=== PATIENT | female | born 1960 | race Caucasian/White ===

== ENCOUNTER 2018-12-19 20:42 | Observation (INO) | payer OTHER, SELFPAY ==
[2018-12-19] VITALS (11 sets, daily range): BP systolic 86–131; BP diastolic 45–72; PULSE 17–106; RESP 15–19; TEMP 37.8–39.3; O2SAT 90–92; BMI 36.4
--- NOTE | 2018-12-19 21:11 | DI.RAD.S_ITS ---
PROCEDURE: XR CHEST 1V INDICATIONS: cough short of breath fever TECHNIQUE: One view of the chest was acquired. COMPARISON: [facility], CR, XR CHEST 2VW, 07/09/2015, 8:49. [facility], CR, XR CHEST 2 VIEWS, 12/12/2017, 12:59. FINDINGS: Surgical changes and devices: Right chest wall elsi catheter, tip of which is in the upper SVC. Lungs and pleura: Lungs are clear. No pleural effusions or pneumothorax. Mediastinum: Mediastinal contours appear normal. Heart size is normal. Bones and chest wall: No suspicious bony lesions. Overlying soft tissues appear unremarkable. IMPRESSION: No acute process. Dictated by: Pam Henry M.D. on 12/19/2018 at 21:56 Approved by: Pam Henry M.D. on 12/19/2018 at 21:56
[2018-12-19 21:26] LABS: Add Manual Diff / Slide Review NO; Basophils Absolute Auto 0 /uL (0-100); Basophils Percent Auto 0.6 % (0-2); Eosinophils Absolute Auto 0 /uL (0-450); Eosinophils Percent Auto 0.1 % (2-4); Hematocrit 43.7 % (36-46); Hemoglobin 14.7 g/dL (12.0-16.0); Lymphocytes Absolute Auto 300 /uL (1100-4500); Lymphocytes Percent Auto 4.6 % (25-40); Mean Corpuscular HGB Conc 33.6 % (30-36); Mean Corpuscular Hemoglobin 29.3 PG (26-34); Mean Corpuscular Volume 87.3 fL (80-100); Monocytes Absolute Auto 900 /uL (0-900); Monocytes Percent Auto 12.4 % (3-14); Neutrophils Absolute Auto 6100 /uL (1500-7000); Neutrophils Percent Auto 82.3 % (50-75); Platelet Count 244 X10^3/uL (150-400); Red Blood Cell Count 5.01 X10^6/uL (4.0-5.2); Red Cell Distribution Width 14.5 % (11.6-14.8); White Blood Cell Count 7.4 X10^3/uL (4.5-11.0)
--- NOTE | 2018-12-19 21:26 | PC.NURSE ---
Patient has alpha 1 antitrypsin deficiency. Takes a weekly Prolastin infusion. It was due today, but her nurse was not able to make it due to the snow. She has been feeling ill with fever, chills, dry cough, and decreased appetite. Has been admitted for pneumonia in the past.
[2018-12-19] MEDS: ACETAMINOPHEN 325 MG TABLET 975 MG PO (21:37)
[2018-12-19] MEDS: SODIUM CHLORIDE 0.9% 1,000 ML 200 ML IV (21:37)
[2018-12-19] MEDS: KETOROLAC 60 MG/2 ML VIAL 15 MG IV (21:37)
[2018-12-19 21:38] LABS: Lactate (Lactic Acid) 0.8 mmol/L (0.7-2.1)
[2018-12-19 21:44] LABS: Alanine Aminotransferase 38 IU/L (9-52); Albumin 4.4 g/dL (3.5-5.0); Albumin Globulin Ratio 1.2 (1.0-2.8); Alkaline Phosphatase 69 U/L (38-126); Aspartate Aminotransferase 43 IU/L (14-36); Bilirubin Total 0.5 mg/dL (0.2-1.3); Blood Urea Nitrogen 16 mg/dL (7-17); Calcium 8.7 mg/dL (8.4-10.2); Carbon Dioxide 23 mmol/L (22-32); Chloride 104 mmol/L (98-107); Estimated Glomerular Filt Rate > 60.0 mL/min (>60); Globulin 3.6 g/dL (1.7-4.1); Glucose 114 mg/dL (70-100); HEMOLYSIS < 15 (0-50); Potassium 3.9 mmol/L (3.4-5.1); Sodium 137 mmol/L (137-145)
[2018-12-19 21:59] LABS: Procalcitonin 0.08 ng/mL (<0.5)
[2018-12-19] MEDS: SODIUM CHLORIDE 0.9% 1,000 ML 1000 ML IV ×2 (22:59→23:44)
[2018-12-20] VITALS (22 sets, daily range): BP systolic 88–145; BP diastolic 45–74; PULSE 60–102; RESP 15–22; TEMP 36.7–37.8; O2SAT 91–98; BMI 36.4; BMI 37.5
--- NOTE | 2018-12-20 00:26 | ED_ITS ---
HPI - URI/Sore Throat General Chief Complaint: Upper Respiratory Symptoms Stated Complaint: fever, cough Time Seen by Provider: 12/19/18 20:52 Source: patient Mode of arrival: ambulatory Limitations: no limitations History of Present Illness HPI Narrative: Patient is a 58-year-old female presenting with fever and upper respiratory like symptoms. She has had body aches all day today. She feels like it settled in her chest but she denies any productive cough or shortness of breath. She does have alpha 1 antitrypsin deficiency. She says that she is more prone to pneumonia. She denies any productive cough. She is noted to be tachycardic and febrile in the ED. She has a slight headache. No abdominal or UTI symptoms. She says she has been unable to get off the couch today. She has had significant decrease in oral intake. She has not yet taken any Tylenol or ibuprofen since this morning. MD Complaint: fever and cough Related Data Allergies Allergy/AdvReac Type Severity Reaction Status Date / Time cephalexin [CEPHALEXIN] Allergy Severe NAUSEA/VOMI Verified 12/19/18 21:36 TING Iodinated Contrast- Oral and Allergy Severe SWELLING/FAST Verified 12/19/18 21: 36 IV Dye HEART RATE [IODINATED CONTRAST MEDIA - IV DYE] povidone-iodine Allergy Severe facial, Verified 12/19/18 21:36 [From BETADINE] truck swelling soap [From BETADINE] Allergy Severe facial, Verified 12/19/18 21:36 truck swelling Review of Systems Review of Systems ROS Unobtainable: All systems reviewed & are unremarkable except as noted in HPI and below Constitutional Reports body ache(s), Reports chills, Reports fatigue, Reports fever(s) and Reports headache(s) ENT Ears, Nose, Mouth, and Throat: Reports headache(s) Cardiovascular Denies chest pain, Denies irregular heart rhythm, Denies lightheadedness, Denies palpitations and Denies orthopnea Respiratory Reports as per HPI Gastrointestinal Gastrointestinal: Denies abdominal pain, Denies diarrhea, Denies nausea and Denies vomiting Genitourinary Denies hematuria, Denies flank pain, Denies urinary incontinence and Denies urinary urgency Integumentary/Breasts Denies pruritus, Denies erythema, Denies rash and Denies wounds Neurologic Reports headache(s) Endocrine Reports fatigue and Denies palpitations [facility] Medical History [id number] deficiency (Acute) Social History Smoking Status: Former smoker Social History Smoking Status: Former smoker Exam Initial Vital Signs Initial Vital Signs: Vital Signs Temperature 102.6 F H 12/19/18 20:47 Pulse Rate 106 H 12/19/18 20:47 Respiratory Rate 19 12/19/18 20:47 Blood Pressure 131/70 12/19/18 20:47 Pulse Oximetry 90 L 12/19/18 20:47 GENERAL: Alert oriented x3 but appears to not feel well HEENT: Head atraumatic,EOMI, pupils reactive, neck is supple no meningeal signs CARDIOVASCULAR: Regular rate and rhythm without murmurs, rubs or gallops. RESPIRATORY: Decreased breath sounds at bases no respiratory distress no wheezes rales or rhonchi ABDOMEN: Soft, nontender. Normoactive bowel sounds all 4 quadrants. No guarding or rebound. EXTREMITIES: Normal range of motion, no clubbing or edema. Neurovascularly intact NEUROLOGICAL: Alert and oriented x4.Normal gait and speech. Cranial nerves II through XII grossly intact. SKIN: Warm, dry, no laceration, no petechiae, no rashes or lesions. Scores qSOFA Altered Mental Status (GCS <15): No Respiratory rate greater than/equal to 22: No Systolic blood pressure less than or equal to 100: Yes qSOFA Total: 1 0-1 Not High Risk 1-3 High risk Course Orders Ordered: ED Orders 12/19/18 21:11 XR chest 1V Stat 12/19/18 21:18 Complete Blood Count AUTO DIFF Stat Comprehensive Metabolic Panel Stat Influenza A and B by PCR Rapid Stat Lactate (Lactic Acid) Stat Procalcitonin Stat 12/19/18 21:39 Blood Culture Stat 12/20/18 01:07 Lactate (Lactic Acid) Stat Sodium Chloride (Normal Saline 0.9%) 1,000 mls @ 200 mls/hr IV CONT ISH Last Infusion: 12/19/18 22:55 Dose: 0 mls/hr Infusion: 12/19/18 21:38 Dose: 1,000 mls/hr Admin: 12/19/18 21:37 Dose: 200 mls/hr Sodium Chloride (Normal Saline 0.9%) 1,000 mls @ 200 mls/hr IV BOLUS ONE Stop: 12/20/18 05:29 Last Admin: 12/20/18 00:46 Dose: 200 mls/hr Discontinued Medications Acetaminophen (Tylenol) 975 mg PO NOW ONE Stop: 12/19/18 21:12 Last Admin: 12/19/18 21:37 Dose: 975 mg Albuterol/Ipratropium (Duoneb) 3 ml INH NOW ONE Stop: 12/19/18 21:20 Last Admin: 12/19/18 21:37 Dose: Sodium Chloride (Normal Saline 0.9%) 1,000 mls @ 1,000 mls/hr IV BOLUS ONE Stop: 12/19/18 23:55 Last Infusion: 12/19/18 23:44 Dose: 0 mls/hr Admin: 12/19/18 22:59 Dose: 1,000 mls/hr Sodium Chloride (Normal Saline 0.9%) 1,000 mls @ 1,000 mls/hr IV BOLUS ONE Stop: 12/20/18 00:10 Last Infusion: 12/20/18 00:46 Dose: 0 mls/hr Admin: 12/19/18 23:44 Dose: 1,000 mls/hr Ketorolac Tromethamine (Toradol) 15 mg IV NOW ONE Stop: 12/19/18 21:12 Last Admin: 12/19/18 21:37 Dose: 15 mg Oseltamivir Phosphate (Tamiflu) 75 mg PO NOW ONE Stop: 12/20/18 00:31 Last Admin: 12/20/18 00:45 Dose: 75 mg Vital Signs - 8 hr 12/19/18 20:47 12/19/18 20:58 12/19/18 21:00 Temperature 102.6 F H Pulse Rate 106 H 104 H 104 H Respiratory Rate 19 15 17 Blood Pressure 131/70 Blood Pressure [Left Arm] 125/72 117/67 Pulse Oximetry 90 L 91 12/19/18 21:15 12/19/18 21:37 12/19/18 21:45 Temperature 102.7 F H Pulse Rate 102 H 101 H Respiratory Rate 17 16 Blood Pressure Blood Pressure [Left Arm] 100/70 100/59 L Pulse Oximetry 12/19/18 22:15 12/19/18 22:40 12/19/18 22:45 Temperature 100.1 F H Pulse Rate 96 H 91 H 17 L Respiratory Rate 17 15 17 Blood Pressure Blood Pressure [Left Arm] 86/67 L 96/54 L 89/45 L Pulse Oximetry 92 12/19/18 23:15 12/19/18 23:30 12/20/18 00:00 Temperature Pulse Rate 84 80 79 Respiratory Rate 17 17 18 Blood Pressure Blood Pressure [Left Arm] 101/52 L 88/45 L 88/50 L Pulse Oximetry 12/20/18 00:15 12/20/18 00:36 Temperature 98.3 F Pulse Rate 76 81 Respiratory Rate 15 15 Blood Pressure Blood Pressure [Left Arm] 93/52 L 91/45 L Pulse Oximetry 94 MDM - URI/Sore Throat Lab Data Attestation: I reviewed the patient's lab results. Result diagrams: 12/19/18 21:18 12/19/18 21:18 Lab Results 12/19/18 12/19/18 12/19/18 Range/Units 21:18 21:18 21:18 WBC 7.4 (4.5-11.0) X10^3/uL RBC 5.01 (4.0-5.2) X10^6/uL Hgb 14.7 (12.0-16.0) g/dL Hct 43.7 (36-46) % MCV 87.3 (80-100) fL MCH 29.3 (26-34) PG MCHC 33.6 (30-36) % RDW 14.5 (11.6-14.8) % Plt Count 244 (150-400) X10^3/uL Neut % (Auto) 82.3 H (50-75) % Lymph % (Auto) 4.6 L (25-40) % [place] % (Auto) 12.4 (3-14) % Eos % (Auto) 0.1 L (2-4) % Baso % (Auto) 0.6 (0-2) % Neut # (Auto) 6100 (0295-0830) /uL Lymph # (Auto) 300 L (3951-7351) /uL [place] # (Auto) 900 (0-900) /uL Eos # (Auto) 0 (0-450) /uL Baso # (Auto) 0 (0-100) /uL Sodium 137 (137-145) mmol/L Potassium 3.9 (3.4-5.1) mmol/L Chloride 104 (98-107) mmol/L Carbon Dioxide 23 (22-32) mmol/L BUN 16 (7-17) mg/dL Creatinine 0.80 (0.52-1.04) mg/dL Estimated GFR > 60.0 (>60) mL/min BUN/Creatinine Ratio 20.0 (6-22) Glucose 114 H (70-100) mg/dL Lactate (0.7-2.1) mmol/L Calcium 8.7 (8.4-10.2) mg/dL Total Bilirubin 0.5 (0.2-1.3) mg/dL AST 43 H (14-36) IU/L ALT 38 (9-52) IU/L Alkaline Phosphatase 69 (38-126) U/L Total Protein 8.0 (6.3-8.2) g/dL Albumin 4.4 (3.5-5.0) g/dL Globulin 3.6 (1.7-4.1) g/dL Albumin/Globulin Ratio 1.2 (1.0-2.8) Procalcitonin 0.08 (<0.5) ng/mL Influenza A & B (PCR) (Negative) 12/19/18 12/19/18 12/20/18 Range/Units 21:18 21:18 01:07 WBC (4.5-11.0) X10^3/uL RBC (4.0-5.2) X10^6/uL Hgb (12.0-16.0) g/dL Hct (36-46) % MCV (80-100) fL MCH (26-34) PG MCHC (30-36) % RDW (11.6-14.8) % Plt Count (150-400) X10^3/uL Neut % (Auto) (50-75) % Lymph % (Auto) (25-40) % [place] % (Auto) (3-14) % Eos % (Auto) (2-4) % Baso % (Auto) (0-2) % Neut # (Auto) (1857-8960) /uL Lymph # (Auto) (3482-4703) /uL [place] # (Auto) (0-900) /uL Eos # (Auto) (0-450) /uL Baso # (Auto) (0-100) /uL Sodium (137-145) mmol/L Potassium (3.4-5.1) mmol/L Chloride (98-107) mmol/L Carbon Dioxide (22-32) mmol/L BUN (7-17) mg/dL Creatinine (0.52-1.04) mg/dL Estimated GFR (>60) mL/min BUN/Creatinine Ratio (6-22) Glucose (70-100) mg/dL Lactate 0.8 0.6 L (0.7-2.1) mmol/L Calcium (8.4-10.2) mg/dL Total Bilirubin (0.2-1.3) mg/dL AST (14-36) IU/L ALT (9-52) IU/L Alkaline Phosphatase (38-126) U/L Total Protein (6.3-8.2) g/dL Albumin (3.5-5.0) g/dL Globulin (1.7-4.1) g/dL Albumin/Globulin Ratio (1.0-2.8) Procalcitonin (<0.5) ng/mL Influenza A & B (PCR) Positive, type a A (Negative) MDM Narrative Medical decision making narrative: The patient blood pressure has slowly decreased she has had 3 L of fluid on has still not yet urinated. Blood pressure remains low. Some blood pressures are quite low in the 50's, then the next 1 she has a systolic in the 80s. Blood pressure cuff is changed. She is awake alert sitting. When she did stand up she got a little dizzy and lightheaded. Patient states that her blood pressure is normally low but is usually in the 100s. All according to old records and frestyl systolic is usually 113, in 2016. Repeat lactate drawn. 1:00 a.m. hospitalist hesitant to accept patient, the patient does appear well and is sitting upright however she has multiple repeated blood pressures in the 80s. She is on her 4th L of fluid and still has not urinated she has 30 cc of urine in her bladder. After bladder scan. 1:45 a.m. hospitalist Manny, in the ED to see and evaluate patient. Agrees to observation. SIRS, Sepsis, and Septic Shock Criteria from [email or web address] on 12/20/2018 All calculations should be rechecked by clinician prior to use RESULT SUMMARY: This patient meets septic shock criteria. Follow your guidelines for sepsis, which typically include aggressive fluid resuscitation, early, broad-spectrum anbiotics, ICU consultation, CVP evaluation, and occasionally pressors and transfusion. INPUTS: Temp >38?C (100.4?F) or < 36?C (96.8?F) ?> 1 = Yes Heart rate > 90 ?> 1 = Yes Respiratory rate > 20 or Heather? < 32 mm Hg ?> 0 = No WBC > 12,000/mm?, < 4,000/mm?, or > 10% bands ?> 0 = No Suspected or present source of infection ?> 1 = Yes Lactic acidosis, SBP <90 or SBP drop ? 40 mm Hg of normal ?> 1 = Yes Severe sepsis with hypotension, despite adequate fluid resuscitation ?> 1 = Yes Evidence of ? 2 organs failing ?> 0 = No Discharge Plan Departure Patient Disposition: Admitted as Observation Clinical Impression: Influenza A, Sepsis associated hypotension Admit Date/Time: 12/20/18 01:45 Admit Provider: Suyapa Bryant
[2018-12-20] MEDS: OSELTAMIVIR 75 MG CAPSULE PO (00:45)
[2018-12-20] MEDS: SODIUM CHLORIDE 0.9% 1,000 ML 200 ML IV ×2 (00:46→07:44)
[2018-12-20 01:22] LABS: Lactate (Lactic Acid) 0.6 mmol/L (0.7-2.1)
--- NOTE | 2018-12-20 03:36 | PC.NURSE ---
0210- pt arrived to room 225 from ED via wheelchair. A/O x3, 94% RA, LS quiet wheezes throughout lung moore, SOB with exertion. LFA NS@ 100, and infusing 4th liter, Hx COPD. Hypotensive, reports baseline. Fluenza positive and on droplet isolation, tamiflu given in ED. Own CPAP in room and uses for sleep. Tess rooming in. SBA to BRP to void 600mL clear urine. Pt with dry heavinf @ 0300, no emesis. Bed alarm on, call light in reach.
[2018-12-20 07:25] LABS: RBC Urine None Seen (0-5/HPF)
[2018-12-20 07:26] LABS: Appearance Urine UA CLEAR; Bilirubin Urine UA NEGATIVE (NEGATIVE); Color Urine UA YELLOW; Glucose Urine UA NEGATIVE (Negative); Ketones Urine UA NEGATIVE (NEGATIVE); Leukocyte Esterase Urine UA TRACE (NEGATIVE); Nitrite Urine UA NEGATIVE (Negative); Occult Blood Urine UA NEGATIVE (Negative); Protein Urine UA NEGATIVE (Negative); Urobilinogen Urine UA 0.2 E.U./dL (0.2); pH Urine UA 5.5 (4.5-8.0)
[2018-12-20 07:35] LABS: WBC Urine 1-5/HPF (0-5/HPF)
[2018-12-20 07:36] LABS: Bacteria Urine Moderate (10-30); Culture Indicated Urine Specimen Cultured
[2018-12-20] MEDS: SODIUM CHLORIDE 0.9% 1,000 ML 125 ML IV ×2 (07:46→07:47)
--- NOTE | 2018-12-20 08:07 | P.HP_ITS ---
History of Present Illness Date Patient Seen: 12/20/18 Time Patient Seen: 06:00 Chief complaint: fever, cough Narrative: The patient is a 58-year-old female with PMH of COPD, alpha 1 antitrypsin deficiency, and obesity who presented to the ED with fever, generalized malaise, myalgia, and somnolence. Denies cough until presented to the ED which is non-productive. Denies headache, chest pain, dyspnea (at rest or with exertion), peripheral edema, orthopnea, abdominal pain, nausea, and vomiting. Has been running fevers at home which she treated with an analgesic earlier in the day. Thereafter slept for most of the day. Given the aforementioned symptoms and lack of energy she has not had much for fluid intake. In the ED was diagnosed with Influenza A. ED work-up / presentation WBC 7.4, HGB 14.7, PLT 244 lactate 0.6 PCT 0.08 NA 137, K 3.9, Cl 104, Ca 8.7 Liver function WNL, no evidence of organ failure renal function WNL, no evidence of organ failure qSofa score 1, not a high risk PMH: COPD, alpha 1 antitrypsin deficiency, obesity PSH: Cholecystectomy, hernia repair, Port-A-Cath insertion, pilonidal cyst resection, corneal transplant, hydradenitis surgery FHx: Mother and father both have alpha 1 antitrypsin deficiency, grandmother () heart disease. SHx: . Lives at home with her partner. Employed with [employer]. Reports a 20 pack year history of tobacco use, quit 30 years ago. D enies alcohol and recreational drug use. Patient History Medical History Uaetp-0-rpaabxelqbd deficiency (Acute) Social History household members: spouse Smoking Status: Former smoker Family & Social History Social History: household members spouse Prior Living Arrangements House Safety & Behavioral: Feels Safe in Current Yes Environment Been Physically Hurt or No Threatened By a Person Suicidal Ideation Description None Suicide Plan Description No Plan Tobacco & Substance use: Smoking Status Former smoker alcohol intake frequency holiday/special occasion Substance Use Type does not use Meds Allergies Allergy/AdvReac Type Severity Reaction Status Date / Time cephalexin [CEPHALEXIN] Allergy Severe NAUSEA/VOMI Verified 12/19/18 21:36 TING Iodinated Contrast- Oral and Allergy Severe SWELLING/FAST Verified 12/19/18 21:36 IV Dye HEART RATE [IODINATED CONTRAST MEDIA - IV DYE] povidone-iodine Allergy Severe facial, Verified 12/19/18 21:36 [From BETADINE] truck swelling soap [From BETADINE] Allergy Severe facial, Verified 12/19/18 21:36 truck swelling Review of Systems Review of Systems All systems reviewed & are unremarkable except as noted in HPI and below Exam Vital Signs (past 8 hours): - 12/20/18 00:15 12/20/18 00:36 12/20/18 02:00 Temperature 98.3 F 98.2 F Pulse Rate 76 81 80 Respiratory Rate 15 15 20 Blood Pressure 108/73 Blood Pressure [Left Arm] 93/52 L 91/45 L Pulse Oximetry 94 92 12/20/18 02:17 12/20/18 06:30 Temperature 98.9 F Pulse Rate 76 89 Respiratory Rate 19 22 Blood Pressure 97/55 L 117/61 Blood Pressure [Left Arm] Pulse Oximetry 94 92 Oxygen Delivery Method Room Air Narrative Exam Narrative: Constitutional: NAD, obese habitus Neurologic: AOx3, no focal neurological deficits Head: NC, AT Eyes: PERRL, EOMI, gaze conjugate Ears: external ears normal, no otorrhea Nose: external nose normal, no rhinorrhea or epistaxis Throat: oropharynx w/o exudate, MMM Neck: no masses, lymphadenopathy, or JVD Chest / Respiratory: equal chest rise, unlabored respiratory effort, no dyspnea or tachypnea Diminished bases Heart / CV: S1S2, no murmur Abdomen / GI: round, NT, ND, + BS, no organomegaly : no suprapubic tenderness, no CVA Peripheral / Vascular: warm to touch, DP and PT pulses palpable, no edema Musc: full ROM of upper and lower extremities, adequate muscle tone and bulk Skin: no ecchymosis or suspicious lesions / ulcers Objective Labs Result Diagrams: 12/19/18 21:18 12/19/18 21:18 Labs: Laboratory Results - last 24 hr 12/19/18 12/19/18 12/19/18 21:18 21:18 21:18 WBC 7.4 RBC 5.01 Hgb 14.7 Hct 43.7 MCV 87.3 MCH 29.3 MCHC 33.6 RDW 14.5 Plt Count 244 Neut % (Auto) 82.3 H Lymph % (Auto) 4.6 L [place] % (Auto) 12.4 Eos % (Auto) 0.1 L Baso % (Auto) 0.6 Neut # (Auto) 6100 Lymph # (Auto) 300 L [place] # (Auto) 900 Eos # (Auto) 0 Baso # (Auto) 0 Sodium 137 Potassium 3.9 Chloride 104 Carbon Dioxide 23 BUN 16 Creatinine 0.80 Estimated GFR > 60.0 BUN/Creatinine Ratio 20.0 Glucose 114 H Lactate Calcium 8.7 Total Bilirubin 0.5 AST 43 H ALT 38 Alkaline Phosphatase 69 Total Protein 8.0 Albumin 4.4 Globulin 3.6 Albumin/Globulin Ratio 1.2 Procalcitonin 0.08 Urine Color Urine Appearance Urine pH Ur Specific [place] Urine Protein Urine Glucose (UA) Urine Ketones Urine Occult Blood Urine Nitrate Urine Bilirubin Urine Urobilinogen Ur Leukocyte Esterase Urine RBC Urine WBC Urine Bacteria Ur Culture Indicated? Influenza A & B (PCR) 12/19/18 12/19/18 12/20/18 21:18 21:18 01:07 WBC RBC Hgb Hct MCV MCH MCHC RDW Plt Count Neut % (Auto) Lymph % (Auto) [place] % (Auto) Eos % (Auto) Baso % (Auto) Neut # (Auto) Lymph # (Auto) [place] # (Auto) Eos # (Auto) Baso # (Auto) Sodium Potassium Chloride Carbon Dioxide BUN Creatinine Estimated GFR BUN/Creatinine Ratio Glucose Lactate 0.8 0.6 L Calcium Total Bilirubin AST ALT Alkaline Phosphatase Total Protein Albumin Globulin Albumin/Globulin Ratio Procalcitonin Urine Color Urine Appearance Urine pH Ur Specific [place] Urine Protein Urine Glucose (UA) Urine Ketones Urine Occult Blood Urine Nitrate Urine Bilirubin Urine Urobilinogen Ur Leukocyte Esterase Urine RBC Urine WBC Urine Bacteria Ur Culture Indicated? Influenza A & B (PCR) Positive, type a A 12/20/18 07:24 WBC RBC Hgb Hct MCV MCH MCHC RDW Plt Count Neut % (Auto) Lymph % (Auto) [place] % (Auto) Eos % (Auto) Baso % (Auto) Neut # (Auto) Lymph # (Auto) [place] # (Auto) Eos # (Auto) Baso # (Auto) Sodium Potassium Chloride Carbon Dioxide BUN Creatinine Estimated GFR BUN/Creatinine Ratio Glucose Lactate Calcium Total Bilirubin AST ALT Alkaline Phosphatase Total Protein Albumin Globulin Albumin/Globulin Ratio Procalcitonin Urine Color Yellow Urine Appearance Clear Urine pH 5.5 Ur Specific [place] 1.010 Urine Protein Negative Urine Glucose (UA) Negative Urine Ketones Negative Urine Occult Blood Negative Urine Nitrate Negative Urine Bilirubin Negative Urine Urobilinogen 0.2 Ur Leukocyte Esterase Trace H Urine RBC None seen Urine WBC 1-5/hpf Urine Bacteria Moderate (10-30) H Ur Culture Indicated? Specimen cultured Influenza A & B (PCR) ASSESSMENT AND PLAN INFLUENZA A Present on admission. Confirmed with lab testing. - Tamiflu - Supportive care Acute hypotension, developed in ED 2/2 hypovolemia and febrile / hypermetabolic state. qSofa score 1. no indication for sepsis. BP improving after 3L of NS - blood cx collected in ED - obtain UA - continue IVF, no UO since initial presenation Hypovolemia 2/2 hypermetabolic state and decreased intake - See plan of care for acute hypotension COPD without acute exacerbation - stable chronic condition, DuoNeb treatments per [employer] regimen Alpha antitrypsin 1 deficiency, chronic condition On Prolastin infusion, missed dose on 12/19/2018; infusion nurse unable to make it to the house d/t weather conditions - To be rescheduled Quality VTE Deep Vein Thrombosis/Pulmonary Embolism Present on Admission: No
[2018-12-20] MEDS: ALBUTEROL/IPRATROPIUM 3 ML AMPUL INH ×3 (09:02→19:26)
[2018-12-20] MEDS: ACETAMINOPHEN 325 MG TABLET 650 MG PO ×2 (09:38→19:59)
[2018-12-20] MEDS: SODIUM CHLORIDE 0.9% 1,000 ML 75 ML IV ×2 (10:02→16:20)
[2018-12-20 10:26] LABS: Add Manual Diff / Slide Review NO; Basophils Absolute Auto 0 /uL (0-100); Basophils Percent Auto 0.8 % (0-2); Eosinophils Absolute Auto 0 /uL (0-450); Eosinophils Percent Auto 0.1 % (2-4); Hematocrit 39.9 % (36-46); Hemoglobin 13.1 g/dL (12.0-16.0); Lymphocytes Absolute Auto 400 /uL (1100-4500); Lymphocytes Percent Auto 11.6 % (25-40); Mean Corpuscular HGB Conc 32.7 % (30-36); Mean Corpuscular Volume 88.6 fL (80-100); Monocytes Absolute Auto 600 /uL (0-900); Monocytes Percent Auto 16.4 % (3-14); Neutrophils Absolute Auto 2700 /uL (1500-7000); Neutrophils Percent Auto 71.1 % (50-75); Platelet Count 190 X10^3/uL (150-400); Red Cell Distribution Width 14.8 % (11.6-14.8); White Blood Cell Count 3.8 X10^3/uL (4.5-11.0)
[2018-12-20 10:38] LABS: Blood Urea Nitrogen 14 mg/dL (7-17); Calcium 7.8 mg/dL (8.4-10.2); Carbon Dioxide 23 mmol/L (22-32); Chloride 108 mmol/L (98-107); Estimated Glomerular Filt Rate > 60.0 mL/min (>60); Glucose 100 mg/dL (70-100); HEMOLYSIS < 15 (0-50); Magnesium 1.9 mg/dL (1.6-2.3); Sodium 139 mmol/L (137-145)
--- NOTE | 2018-12-20 15:32 | PC.NURSE ---
Resp: Lungs tight, diminished, has freq loose sounding cough, brings up yellow secretions. Likes hob elevated. Would still like to go home today. Awaiting MD Delacruz to see her. She has tickets to [place] and she would like to see if she can still go. She reports the tickets are non refundable. Cont w/poc.
[2018-12-20 15:42] LABS: Acinetobacter baumannii Not Detected (Not Detect); E. coli Not Detected (Not Detect); Enterobacter cloacae complex Not Detected (Not Detect); Enterobacteriaceae species Not Detected (Not Detect); Enterococcus species Not Detected (Not Detect); Listeria monocytogenes Not Detected (Not Detect); Proteus species Not Detected (Not Detect); Staphylococcus species Not Detected (Not Detect); Streptococcus agalactiae (Gr B Not Detected (Not Detect); Streptococcus pneumonia Not Detected (Not Detect); Streptococcus pyogenes (Gr A) Not Detected (Not Detect); Streptococcus species Detected (Not Detect)
[2018-12-20 15:43] LABS: Candida albicans Not Detected (Not Detect); Candida glabrata Not Detected (Not Detect); Candida krusei Not Detected (Not Detect); Candida parapsilosis Not Detected (Not Detect); Candida tropicalis Not Detected (Not Detect); Haemophilus influenzae Not Detected (Not Detect); Neisseria meningitidis Not Detected (Not Detect); Pseudomonas aeruginosa Not Detected (Not Detect); Serratia marcescens Not Detected (Not Detect)
[2018-12-20] MEDS: levoFLOXacin 250 MG TABLET 750 MG PO (19:55)
--- NOTE | 2018-12-20 21:28 | PC.NURSE ---
Pt A&OX3. 94%RA. SOB on exertion. intermittent productive cough. Heart rate up to 105 bpm when walking around, then back to 80's at rest. Administered tylenol for temp 100.0. call light in reach.
--- NOTE | 2018-12-20 23:50 | PC.NURSE ---
Addendum entered by Krissy Paiz R.N. 12/21/18 06:39: Concerned that she has more wrong with her lungs than just influenza A as is bringing up darker yellow sputum. Requested to talk with hospitalist regarding her condition so STAN Thorpe is currently in room. Original Note: Patient is alert and oriented. Breath sounds diminished on inspiration and has expiratory wheezes throughout; RA sat 91% so contacted RT for Rx per patient request. States she is SOB with exertion and has intermittent cough productive of scant yellow sputum. HRR. Denies nausea. BT present and is passing flatus. Denies dysuria, frequency or urgency. Independent with mobility. Low grade temp of 99.2. Denies pain. Refused SCD's. Fall risk score is moderate but patient is steady on feet and agrees to call for assist if any dizziness, lightheadedness or weakness. On droplet precautions due to dx of influenza A
[2018-12-21] MEDS: guaiFENesin ER 600 MG TAB 1200 MG PO ×2 (01:02→09:14)
[2018-12-21 05:15] VITALS: BP 127/62; PULSE 90; RESP 20; TEMP 37.4; O2SAT 91
[2018-12-21] MEDS: SODIUM CHLORIDE 0.9% 1,000 ML 75 ML IV (05:57)
[2018-12-21 06:04] VITALS: PULSE 83; RESP 20; O2SAT 93
[2018-12-21] MEDS: ALBUTEROL/IPRATROPIUM 3 ML AMPUL INH ×2 (06:04→11:27)
[2018-12-21 06:38] VITALS: O2SAT 92
[2018-12-21 07:40] VITALS: O2SAT 92
[2018-12-21 08:00] VITALS: BP 127/76; PULSE 85; RESP 18; TEMP 37.6; O2SAT 92
--- NOTE | 2018-12-21 08:43 | P.DS_ITS ---
History of Present Illness Chief complaint: fever, cough Narrative: The patient is a 58-year-old female with PMH of COPD, alpha 1 antitrypsin deficiency, and obesity who presented to the ED with fever, generalized malaise, myalgia, and somnolence. Denies cough until presented to the ED which is non-productive. Denies headache, chest pain, dyspnea (at rest or with exertion), peripheral edema, orthopnea, abdominal pain, nausea, and vomiting. Has been running fevers at home which she treated with an analgesic earlier in the day. Thereafter slept for most of the day. Given the aforementioned symptoms and lack of energy she has not had much for fluid intake. In the ED was diagnosed with Influenza A. Discharge Providers Date of admission: 12/20/18 01:45 Primary care physician: Alicja Ryder MD Consults: 12/20/18 03:53 Consult to Discharge Planning Routine Comment: 12/20/18 08:10 Consult to Respiratory Therapy Evaluate & Treat Comment: Alpha 1 Antitrip. Def/ Flu A Physician Instructions: Evaluate and treat Discharge provider: Emlie Allen MD Discharge Date: 12/21/18 Summary Discharge Diagnosis: 1. Acute influenza a 2. Strep bacteremia, unclear significance, likely contaminant 3. Alpha 1 antitrypsin deficiency 4. COPD without exacerbation Hospital Course: Patient was admitted for influenza A causing acute fever, cough, dehydration. She was initially hypotensive and blood pressures normalized with IV hydration. She was started on Tamiflu. Her WBC and procalcitonin were both normal. Fevers resolving. She had blood cultures from admission positive for streptococcal species in 1/2 sites. We think more likely than not this is a contamination. Patient was however started on Levaquin. Final ID of blood cultures is pending at time of discharge. Patient states she gets frequent respiratory infections associated with her alpha 1 anti trypsin deficiency and COPD and is frequently on antibiotic. She feels she has bacterial super infection at this time. Do note chest x-ray negative for pneumonia. She has mild diffuse wheezing on exam at time of discharge but O2 sats in normal range and oral temp below 100. The Levaquin will be continued by mouth for 5 days which should adequately treat any transient bacteremia. Follow-up next week with PCP, Dr. Alicja Ryder. Status at Discharge Functional status at discharge: independent ambulation Time Spent with Patient Greater than 30 minutes Exam Vital Signs (past 8 hours): - 12/21/18 05:15 12/21/18 06:04 12/21/18 06:38 Temperature 99.3 F Pulse Rate 90 83 Respiratory Rate 20 20 Blood Pressure 127/62 Pulse Oximetry 91 93 92 Oxygen Delivery Method Room Air Objective Labs Result Diagrams: 12/20/18 09:45 12/20/18 09:45 Labs: Laboratory Results - last 24 hr 12/19/18 12/20/18 12/20/18 21:18 09:45 09:45 WBC 3.8 L RBC 4.50 Hgb 13.1 Hct 39.9 MCV 88.6 MCH 29.0 MCHC 32.7 RDW 14.8 Plt Count 190 Neut % (Auto) 71.1 Lymph % (Auto) 11.6 L [place] % (Auto) 16.4 H Eos % (Auto) 0.1 L Baso % (Auto) 0.8 Neut # (Auto) 2700 Lymph # (Auto) 400 L [place] # (Auto) 600 Eos # (Auto) 0 Baso # (Auto) 0 Sodium 139 Potassium 4.0 Chloride 108 H Carbon Dioxide 23 BUN 14 Creatinine 0.70 Estimated GFR > 60.0 BUN/Creatinine Ratio 20.0 Glucose 100 Calcium 7.8 L Magnesium 1.9 A. baumannii (PCR) Not detected Verónica albicans (PCR) Not detected C. glabrata (PCR) Not detected C. krusei (PCR) Not detected C. parapsilosis (PCR) Not detected C. tropicalis (PCR) Not detected Enterobacteriac sp PCR Not detected E. cloacae complex PCR Not detected Enterococcus sp PCR Not detected E. coli (PCR) Not detected H. influenzae (PCR) Not detected Influenza A & B (PCR) Positive, type a A Klebsiella oxytoca PCR Not detected Klebsiella pneumoniae Not detected List. monocytogenes PCR Not detected N. meningitidis (PCR) Not detected Proteus species (PCR) Not detected Serratia marcescens PCR Not detected Staphylococcus sp PCR Not detected Staph aureus (PCR) Not detected mecA-Methicil Res Gene Not Reportable Streptococcus sp PCR Detected H Group A Strep (PCR) Not detected Strep agalactiae (PCR) Not detected Strep pneumoniae (PCR) Not detected P. aeruginosa (PCR) Not detected Linda/B-Vanco Res Genes Not Reportable KPC-Carbap Res Gene PCR Not Reportable Discharge Plan Discharge Plan Patient Disposition: Home Discharge Med Rec/Prescriptions Prescriptions: New oseltamivir [Tamiflu] 75 mg capsule 75 mg PO BID 5 Days Qty: 10 RF: 0 levofloxacin [Levaquin] 750 mg tablet 750 mg PO DAILY Qty: 5 RF: 0 Continued Advair Diskus 250-50 mcg/dose Blister With Device 1 inh INHALATION BID RF: 0 ipratropium-albuterol 0.5 mg-3 mg(2.5 mg base)/3 mL Solution For Nebulization 1 neb Inhalation QID RF: 0 prednisolone acetate 1 % Drops,Suspension 1 drp EYE-RIGHT QAM RF: 0 Prolastin-C 1,000 mg Recon Soln 60 mg/kg IV QWEEK RF: 0 Follow up/Referrals: Alicja Ryder MD [Primary Care Provider] - Provider Discharge Instructions Diet: Diet as Tolerated Visit Report/Discharge Packet Instructions: Influenza, Alpha 1 Anti-Trypsin Deficiency, DI for Hypoxia Stand Alone Forms: Work/Release Restrictions Discharge Data Primary Care Provider: Alicja Ryder Attending Provider: Suyapa Bryant Admit Date/Time: 12/20/18 01:45 Quality VTE Deep Vein Thrombosis/Pulmonary Embolism Present on Admission: No
[2018-12-21] MEDS: OSELTAMIVIR 75 MG CAPSULE PO (09:14)
[2018-12-21] MEDS: ACETAMINOPHEN 325 MG TABLET 650 MG PO (09:15)
[2018-12-21 11:34] VITALS: PULSE 80; RESP 18; O2SAT 93
--- NOTE | 2018-12-21 13:57 | PC.NURSE ---
Discharge: Pt feels ready to d/c home. RA sats are 91-92% which she reports as her normal. Pt's d/c instructions were reviewed. Received tamiflu prior to d/c home. Still has a freq loose cough and brings up yellow sputum. Does say she feels better today. Pt d/c home via auto w/spouse.
--- NOTE | 2018-12-21 15:35 | CM.DPNOTE ---
Pt Flu+. DC home today w/spouse, per Dr Allen and RN; no barriers to safe DC home. Pt prescribed Tamiflu for 5 additional days. P: Home today w/family, no SW needs. JW
== END 2018-12-21 12:00 | disposition home or self-care (01) ==
LOC: ED 12-20 01:42 → AC 12-20 01:46
PROVIDERS: Admitting Provider Nurse Practitioner Gerontology; Emergency Provider Emergency Medicine; Family Provider Internal Medicine; PCP Internal Medicine; Visit Provider Nurse Practitioner Gerontology
DX: J10.1 Influenza due to other identified influenza virus with other respiratory manifestations (principal); J02.9 Acute pharyngitis, unspecified; E88.01 Alpha-1-antitrypsin deficiency; Z87.891 Personal history of nicotine dependence; I95.9 Hypotension, unspecified; E86.1 Hypovolemia; J44.9 Chronic obstructive pulmonary disease, unspecified; R78.81 Bacteremia; B95.5 Unspecified streptococcus as the cause of diseases classified elsewhere; E66.9 Obesity, unspecified; E86.0 Dehydration
CPT/HCPCS: 36415; 36591; 51798; 71045; 80048; 80053; 81001; 81015; 83605; 83735; 84145; 85025; 87040; 87077; 87086; 87150; 87186; 87205; 87400; 94640; 96361; 96374; 99284; 99285; G0378; J1885

== ENCOUNTER 2020-01-10 09:55 | Emergency (ER) | payer OTHER, SELFPAY ==
[2018-12-20 22:27] VITALS: BMI 37.5
[2020-01-10 10:11] VITALS: BP 121/80; PULSE 79; RESP 15; TEMP 36; O2SAT 96; BMI 36.4
[2020-01-10] MEDS: TET,DIPH,PERTUSS(ACELL),VAC/PF 0.5 ML SYRINGE IM (12:49)
[2020-01-10] MEDS: LIDO 1%/SOD BICARB 8.4% (10ML) 10 ML SYRINGE INJ (12:49)
--- NOTE | 2020-01-10 12:55 | DI.RAD.S_ITS ---
PROCEDURE: XR FINGER RT MIN 2V INDICATIONS: dog bite, multiple sites TECHNIQUE: AP hand, 2 views of the index finger(s) acquired. COMPARISON: None. FINDINGS: Bones: No fractures or dislocations. No suspicious bony lesions. Soft tissues: No suspicious soft tissue calcifications. Soft tissue swelling of the index finger is present. No radiopaque foreign bodies. IMPRESSION: No acute fractures of the right hand. Dictated by: Heath De Leon M.D. on 01/10/2020 at 12:20 Approved by: Heath De Leon M.D. on 01/10/2020 at 12:25
--- NOTE | 2020-01-10 13:10 | ED.ANIMALBIT ---
HPI - Animal Bite <MADDY McdonoughP - Last Filed: 01/10/20 21:53> General Chief Complaint: Animal Bite Stated Complaint: dog bite right hand/finger Time Seen by Provider: 01/10/20 10:07 Source: patient Mode of arrival: Ambulatory History of Present Illness HPI narrative: 59yo female presents emergency department complaining of a dog bite to her right 2nd finger that happened last night. She states she was called to a house for a social work evaluation when the dog ended up biting her. She was seen at the urgent care today and was told to present to the emergency department for possible fracture in her finger. She reports increasing pain, redness, and difficulty with bending her finger due to the pain. Patient describes the pain as a dull aching 7/10 that is worse with movement better with rest. She denies taking any medications for this pain. Patient denies fevers, chills, nausea, vomiting, diarrhea, chest pain, shortness of breath, or any other concerns. She denies any purulent drainage from the wound. Patient states the dog has up-to-date rabies vaccine which is verified by the local vet. She is unsure of her last Tdap. Related Data Home Medications Medication Instructions Recorded Confirmed Prolastin-C 60 mg/kg IV QWEEK 12/21/18 07/09/19 ipratropium-albuterol 1 neb INHALATION QID 12/21/18 01/10/20 Respironics BIPAP System One 60 #1 ea 05/29/19 07/09/19 fluticasone propion-salmeterol 1 inh INHALATION BID 01/10/20 01/10/20 levothyroxine 01/10/20 levothyroxine 01/10/20 levothyroxine 100 mcg capsule 100 mcg PO DAILY 01/10/20 01/10/20 montelukast 10 mg PO DAILY 01/10/20 01/10/20 Previous Rx's Medication Instructions Recorded doxycycline hyclate 100 mg PO BID 10 Days #20 cap 01/10/20 Allergies Allergy/AdvReac Type Severity Reaction Status Date / Time cephalexin [CEPHALEXIN] Allergy Severe NAUSEA/VOMI Verified 01/10/20 10:10 TING Iodinated Contrast Media Allergy Severe SWELLING/FAST Verified 01/10/20 10:10 [IODINATED CONTRAST MEDIA - HEART RATE IV DYE] povidone-iodine Allergy Severe facial, Verified 01/10/20 10:10 [From BETADINE] truck swelling soap [From BETADINE] Allergy Severe facial, Verified 01/10/20 10:10 truck swelling Review of Systems <STAN Mcdonough - Last Filed: 01/10/20 21:53> Review of Systems Narrative: REVIEW OF SYSTEMS: GENERAL: Denies fever or chills. HENT: No head trauma. EYES: No double vision or vision loss. CARDIOVASCULAR: No chest pain or syncope. RESPIRATORY: No shortness of breath or cough. GASTROINTESTINAL: No nausea, vomiting, diarrhea, or constipation. GENITOURINARY: No flank pain or dysuria. MUSCULOSKELETAL: Complains of finger pain, see HPI. INTEGUMENTARY: No rash, lesions, or pruritus. NEURO: No numbness, tingling. PSYCH: No behavior or mood changes. Patient History <STAN Mcdonough - Last Filed: 01/10/20 21:53> Medical History [id number] deficiency (Acute) Social History household members: spouse Smoking Status: Former smoker Smoking Status: Former smoker alcohol intake frequency: holidays/special occasions only Substance Use Type: does not use Exam <STAN Mcdonough - Last Filed: 01/10/20 21:53> Initial Vital Signs Initial Vital Signs: Vital Signs Temperature 96.8 F L 01/10/20 10:11 Pulse Rate 79 01/10/20 10:11 Respiratory Rate 15 01/10/20 10:11 Blood Pressure 121/80 01/10/20 10:11 Pulse Oximetry 96 01/10/20 10:11 PHYSICAL EXAMINATION: GENERAL: Well groomed, alert, and cooperative. Answers questions promptly and appropriately. Vital signs noted. HENT: Normocephalic, atraumatic. EYES: Symmetrical, sclera white, no periorbital swelling. CARDIOVASCULAR: S1 and S2 sounds normal. Regular rate and rhythm, no murmurs, clicks, or bruits. RESPIRATORY: Normal respiratory rate, trachea midline, airway patent. No stridor, nasal flaring or accessory muscle use. Lungs are clear in all moore. MUSCULOSKELETAL: 2- 3 superficial lesions, to puncture wounds noted to right 2nd finger above and below MIP joint. Increased swelling and erythema noted to MIP joint that extends down to MCP joint. Decreased flexion due to pain and swelling, range of motion improved after administration of lidocaine. Partial Flexion and extension against resistance intact No purulent drainage, no bleeding from wound. Normal gait and coordination. Equal tone and mass bilaterally. No spinal tenderness or deformities. EXTREMITIES: CMS intact. No pedal edema. SKIN: Warm, dry, soft, appropriate color for ethnicity. No lesions, rashes, or wounds. Finger with less than 2nd cap refill, light touch sensation intact. NEURO: Alert and Oriented X 3. No sensory deficits. PSYCH: Appropriate affect and mood. <Kalia Gandara DO - Last Filed: 01/11/20 08:17> Initial Vital Signs Initial Vital Signs: Vital Signs Temperature 96.8 F L 01/10/20 10:11 Pulse Rate 79 01/10/20 10:11 Respiratory Rate 15 01/10/20 10:11 Blood Pressure 121/80 01/10/20 10:11 Pulse Oximetry 96 01/10/20 10:11 Course <STAN Mcdonough - Last Filed: 01/10/20 21:53> Course Course Narrative: Patient's wound was extensively irrigated with normal saline. Bacitracin and bandage were applied. A splint was given to patient to help healing. Tdap was updated. Orders Ordered: Discontinued Medications Bacitracin (Bacitracin) 1 applic TOP NOW ONE Stop: 01/10/20 13:53 Last Admin: 01/10/20 13:57 Dose: 1 applic Documented by: INDIGO Diphtheria/Tetanus/Acell Pertussis (Adacel) 0.5 ml IM .ONCE ONE Stop: 01/10/20 12:19 Last Admin: 01/10/20 12:49 Dose: 0.5 ml Documented by: INDIGO Ibuprofen (Advil) 400 mg PO NOW ONE Stop: 01/10/20 13:14 Last Admin: 01/10/20 13:24 Dose: 400 mg Documented by: INDIGO Lidocaine/Sodium Bicarbonate (Buffered Lidocaine 10 Ml Syr) 10 ml INJ NOW ONE Stop: 01/10/20 12:20 Last Admin: 01/10/20 12:49 Dose: 10 ml Documented by: INDIGO Vital Signs Vital signs: Vital Signs - 8 hr 01/10/20 14:00 Pulse Rate 80 Respiratory Rate 18 Blood Pressure [Left Arm] 124/81 Pulse Oximetry 95 <Kalia Gandara DO - Last Filed: 01/11/20 08:17> Orders Ordered: Discontinued Medications Bacitracin (Bacitracin) 1 applic TOP NOW ONE Stop: 01/10/20 13:53 Last Admin: 01/10/20 13:57 Dose: 1 applic Documented by: INDIGO Diphtheria/Tetanus/Acell Pertussis (Adacel) 0.5 ml IM .ONCE ONE Stop: 01/10/20 12:19 Last Admin: 01/10/20 12:49 Dose: 0.5 ml Documented by: INDIGO Ibuprofen (Advil) 400 mg PO NOW ONE Stop: 01/10/20 13:14 Last Admin: 01/10/20 13:24 Dose: 400 mg Documented by: INDIGO Lidocaine/Sodium Bicarbonate (Buffered Lidocaine 10 Ml Syr) 10 ml INJ NOW ONE Stop: 01/10/20 12:20 Last Admin: 01/10/20 12:49 Dose: 10 ml Documented by: INDIGO Vital Signs Vital signs: Vital Signs - 8 hr 01/10/20 14:00 Pulse Rate 80 Respiratory Rate 18 Blood Pressure [Left Arm] 124/81 Pulse Oximetry 95 MDM - Animal Bite <STAN Mcdonough - Last Filed: 01/10/20 21:53> Medical Records Attestation: I reviewed the patient's medical records. Lab Data Attestation: I reviewed the patient's lab results. Imaging Data Extremity x-ray #1: Radiologist's Impression: [address] [address] XRay Report Signed Patient: Alyse Rios RMR#: [id number] : 9Acct:[id number] Age/Sex: 59 / FDate of Service: 01/10/20 Loc: ED Accession Number: [id number] Procedure: XR finger RT min 2V Ordering Provider: Kelly Jurado PROCEDURE: XR FINGER RT MIN 2V INDICATIONS: dog bite, multiple sites TECHNIQUE: AP hand, 2 views of the index finger(s) acquired. COMPARISON: None. FINDINGS: Bones: No fractures or dislocations. No suspicious bony lesions. Soft tissues: No suspicious soft tissue calcifications. Soft tissue swelling of the index finger is present. No radiopaque foreign bodies. IMPRESSION: No acute fractures of the right hand. Dictated by: Heath De Leon M.D. on 01/10/2020 at 12:20 Approved by: Heath De Leon M.D. on 01/10/2020 at 12:25 [facility] Narrative Medical decision making narrative: History and examination reveal a dog bite with puncture wounds in the beginning of cellulitis due to increased erythema and swelling. Less likely fracture due to negative x-ray. Less likely tenosynovitis or tendon involvement as patient has extension and flexion against resistance intact. However, explained that close follow-up is important to monitor for possible tenosynovitis, this is less likely but remains a concern if infection is not fully heal. Patient was started on doxycycline. She was encouraged to keep the wound clean. Patient was encouraged to return emergency department for any new or worsening symptoms such as increased redness. Patient agrees to plan of care verbalized understanding. Discharge Plan Departure Patient Disposition: Home Clinical Impression: Dog bite Qualifiers: Encounter type: initial encounter Qualified Code(s): W54.0XXA - Bitten by dog, initial encounter Discharge Date/Time: 01/10/20 14:03 Instructions: DI for Dog Bite Activity Restrictions/Additional Instructions: Thank you for entrusting me with your care today. As discussed, your x-rays negative for any fractures. I have started you on antibiotics as it appears you have an infection starting. We have given you a splint to help with pain. Please follow up with your primary care provider in 1 week for further evaluation. Return emergency department for any new or worsening symptoms such as worsening redness, severe pain, fevers, uncontrollable vomiting, chest pain, shortness of breath, or other concerns. Prescriptions: New doxycycline hyclate 100 mg capsule 100 mg PO BID 10 Days Qty: 20 RF: 0 No Action levothyroxine 100 mcg capsule 100 mcg PO DAILY RF: 0 ipratropium-albuterol 0.5 mg-3 mg(2.5 mg base)/3 mL Solution For Nebulization 1 neb Inhalation QID RF: 0 Prolastin-C 1,000 mg Recon Soln 60 mg/kg IV QWEEK RF: 0 fluticasone propion-salmeterol 250-50 mcg/dose blister with device 1 inh INHALATION BID RF: 0 levothyroxine 25 mcg tablet RF: 0 levothyroxine 50 mcg tablet RF: 0 montelukast 10 mg tablet 10 mg PO DAILY RF: 0 (DME) Respironics BIPAP System One 60 Qty: 1 RF: 0 Referrals: Alicja Ryder MD [Primary Care Provider] -
[2020-01-10] MEDS: IBUPROFEN 400 MG TABLET PO (13:24)
[2020-01-10] MEDS: BACITRACIN OINT 0.9 GM PCKT 1 APPLIC TOP (13:57)
[2020-01-10 14:00] VITALS: BP 124/81; PULSE 80; RESP 18; O2SAT 95
== END 2020-01-10 14:03 | disposition home or self-care (01) ==
PROVIDERS: Emergency Provider Nurse Practitioner; Family Provider Internal Medicine; PCP Internal Medicine
DX: L03.011 Cellulitis of right finger (principal); S61.250A Open bite of right index finger without damage to nail, initial encounter; W54.0XXA Bitten by dog, initial encounter; Z23 Encounter for immunization; Y99.0 Civilian activity done for income or pay
CPT/HCPCS: 73140; 90471; 99283; 99284; 90715

== ENCOUNTER → 2020-03-29 13:16 | Outpatient (CLI) | payer OTHER, SELFPAY ==
[2018-12-20 22:27] VITALS: BMI 37.5
--- NOTE | 2020-03-29 | DI.RAD.S_ITS ---
PROCEDURE: XR CHEST 2V INDICATIONS: aplha 1 antitrypsin def TECHNIQUE: 2 views of the chest were acquired. COMPARISON: [facility], CR, XR CHEST 1V, 12/19/2018, 21:24. FINDINGS: Surgical changes and devices: A right-sided Port-A-Cath central line is identified with the tip overlying the mid superior vena cava. Lungs and pleura: Lungs are clear. No pleural effusions or pneumothorax. Mediastinum: Mediastinal contours are normal. Heart size is normal. Bones and chest wall: No suspicious bony abnormalities. Degenerative changes of the spine are not well characterized, but appear to be age-appropriate. Soft tissues appear unremarkable. IMPRESSION: Stable chest. No acute cardiopulmonary process is evident. Dictated by: Heath De Leon M.D. on 03/29/2020 at 12:50 Approved by: Heath De Leon M.D. on 03/29/2020 at 12:51
== END ==
PROVIDERS: Family Provider Internal Medicine; PCP Internal Medicine; Referring Provider Internal Medicine Critical Care Medicine; Visit Provider Internal Medicine Critical Care Medicine
DX: E88.01 Alpha-1-antitrypsin deficiency (principal)
CPT/HCPCS: 71046

== ENCOUNTER → 2020-11-12 | Outpatient (CLI) | payer OTHER, SELFPAY ==
[2018-12-20 22:27] VITALS: BMI 37.5
--- NOTE | 2020-11-12 15:45 | DI.ECHO.S_ITS ---
Echocardiogram Report + + :Name: BETO FORTE Study Date: 11/12/2020 Height: 65 in : :[facility] Weight: 219 lb : : Gender: Female BSA: 2.1 m2 : :: 1960 Age: 60 yrs BP: 131/87 mmHg: :Reason For Study: COR PULMONALE : :Ordering Physician: RAJANI, : :OMARI Performed By: Linda Cheng : :Referring: OMARI GERARD : + + Interpretation Summary The left ventricle is normal in size and wall thickness. The ejection fraction is estimated to be 55-60%. The right ventricle is normal in size and function. No significant valvular pathology seen. Injection of contrast with valsalva documented an interatrial shunt. Doppler evidence suggests a right to left interatrial shunt. Consider MINNIE to assess interatrial septum and rule out ASD/PFO. The IVC is of normal diameter and collapses greater than 50% with a sniff. This suggests a low right atrial pressure of 3 mm Hg. Procedure: A two-dimensional transthoracic echocardiogram with color flow and Doppler was performed. The study quality was technically adequate. Comparison is made with the echocardiogram of 11/10/2016. A saline contrast injection was performed to assess for cardiac shunting. The injection was performed through an intravenous line in the right arm. The patient was in sinus rhythm with heart rates between 71-88 bpm during the exam. The patient had occasional PVCs during the exam. Left Ventricle: The left ventricle is normal in size and wall thickness. There is no thrombus. The ejection fraction is estimated to be 55-60%. There is a mild dyssynchronous contraction pattern, consistent with a conduction abnormality. MV E/A: 1.1 Med Peak E' Michael: 9.1 cm/sec E/E' med: 9.1. Right Ventricle: The right ventricle is normal in size and function. Atria: The left atrial size is normal. Both atria have remained unchanged in size since the prior echo exam. Right atrial size is normal. Injection of contrast with valsalva documented an interatrial shunt. Doppler evidence suggests a right to left interatrial shunt. Mitral Valve: The mitral valve is normal in structure and function. There is no mitral regurgitation noted. Aortic Valve: The aortic valve is trileaflet. The aortic valve opens well. The aortic valve is mildly calcified. There is no aortic valve stenosis. No aortic regurgitation is present. Tricuspid Valve: The tricuspid valve is normal. There is trace tricuspid regurgitation. Pulmonary artery pressures cannot be estimated because of the lack of a measurable TR jet velocity but the IVC suggests a CVP of around 3 mmHg. Pulmonic Valve: The pulmonic valve leaflets are thin and pliable; valve motion is normal. There is no pulmonic valvular regurgitation. Great Vessels: The aortic root is normal size. The dimensions of the ascending aorta are normal. The IVC is of normal diameter and collapses greater than 50% with a sniff. This suggests a low right atrial pressure of 3 mm Hg. Pericardium/ Pleura There is no pericardial effusion. There is an anterior echo-free space consistent with a fat pad. There is no pleural effusion. MMode/2D Measurements & Calculations LVIDd: 4.5 cm LVOT diam: 1.9 cm LVIDs: 3.3 cm Ao root diam: 2.8 cm FS: 27.5 % asc Aorta Diam: 2.9 cm EPSS: 0.80 cm Ao Arch Diam (Prox Trans): 2.4 cm IVSd: 0.65 cm LVPWd: 0.77 cm LV rinaldi. diameter/BSA (cm/m^2): 2.2 LV sys. diameter/BSA (cm/m^2): 1.6 LA A2 area: 16.8 cm2 RA long axis: 3.6 cm LA A4 area: 16.7 cm2 RA area: 10.9 cm2 LA length (vol): 4.7 cm RA vol: 28.2 ml LA vol: 50.9 ml RA : 13.7 ml/m2 LA vol index: 24.8 ml/m2 IVC diam: 1.4 cm RVD1 (basal): 3.2 cm TAPSE: 1.8 cm Doppler Measurements & Calculations Ao V2 max: 137.3 cm/sec LVOT Max Michael: 109.1 cm/sec Ao V2 mean: 92.0 cm/sec LV V1 max P.8 mmHg Ao max P.5 mmHg LV V1 VTI: 20.6 cm Ao mean P.8 mmHg SELAM(I,D): 2.2 cm2 Ao V2 VTI: 27.7 cm SELAM(V,D): 2.4 cm2 sev ratio: 0.75 SELAM indexed to BSA (cm^2/m^2): 1.1 MV E max michael: 82.4 cm/sec PA V2 max: 62.8 cm/sec MV A max michael: 75.4 cm/sec PA V2 mean: 41.8 cm/sec MV E/A: 1.1 PA mean P.80 mmHg Med Peak E' Michael: 9.1 cm/sec PA pr(Accel): 41.3 mmHg E/E' med: 9.1 Lat Peak E' Michael: 13.8 cm/sec E/E' lat: 6.0 E/e' average: 7.5 MV dec time: 0.20 sec SV(LVOT): 61.4 ml Reading Physician:05:33 PM
== END ==
PROVIDERS: Family Provider Internal Medicine; PCP Internal Medicine; Referring Provider Internal Medicine Critical Care Medicine; Visit Provider Internal Medicine Critical Care Medicine
DX: I27.81 Cor pulmonale (chronic) (principal)
CPT/HCPCS: 93306; C8929; Q9957

== ENCOUNTER → 2021-11-05 12:17 | Outpatient (CLI) | payer OTHER, SELFPAY ==
[2021-07-29 13:37] VITALS: BMI 37.5
--- NOTE | 2021-11-05 12:19 | DI.CT.S_ITS ---
PROCEDURE: CT ABDOMEN PELVIS WO CON INDICATIONS: S/P REPAIR OF CURRENT VENTRAL HERNIA TECHNIQUE: Axial sections were acquired from the lung bases to the pubic symphysis. Coronal and sagittal reformats were performed. For radiation dose reduction, the following was used: automated exposure control, adjustment of mA and/or kV according to patient size. COMPARISON: [facility], CT, ABDOMEN/PELVIS WITHOUT CONTRAS, 11/27/2015, 8:59. [facility], CR, XR CHEST 2V, 03/29/2020, 13:30. FINDINGS: Image quality: Excellent. Lung bases: Emphysematous change suspected. No pleural effusion. Heart: No significant findings. Small hiatal hernia. URINARY: Right Kidney: No stones or hydronephrosis. Right Ureter: No hydroureter. Left Kidney: No hydronephrosis. Nonobstructing left kidney stone measuring 0.3 cm, (01/09). Left Ureter: No hydroureter. Bladder: Not distended. No stones. ABDOMEN: Liver: Hepatic steatosis. Gallbladder: Surgically absent. Biliary ducts: Unremarkable. Pancreas: Unremarkable. Spleen: Unremarkable. Adrenal Glands: Unremarkable. Stomach and Bowel: Stomach, small bowel loops, and colon are unremarkable. The appendix is not dilated. Peritoneum: No abnormal intraperitoneal fluid. No free air. Ventral Wall: Ventral abdominal wall hernia repair. Midline subcutaneous ventral abdominal wall fluid collection measuring 12 x 10 x 5.6 cm, (2/34), estimated volume of 349 cc. The collection is well circumscribed with minimal surrounding at fat stranding. Abdominal Nodes: No enlarged retroperitoneal or mesenteric lymph nodes. Vessels: Aorta and inferior vena cava are normal in size. Mild calcified plaque. PELVIS: Pelvic Organs: Uterus is absent. Pelvic Nodes: Unremarkable. Miscellaneous: No inguinal hernias are seen. Bones: No compression fracture. IMPRESSION: 1. Suspect large midline subcutaneous abdominal wall seroma measuring 12 cm and approximately 349 cc. Less likely abscess. Consider further evaluation with targeted ultrasound and possible aspiration. 2. No recurrent hernia demonstrated. 3. Small nonobstructing left kidney stone. 4. Hepatic steatosis. Dictated by: Jhon Manjarrez M.D. on 11/05/2021 at 14:22 Approved by: Jhon Manjarrez M.D. on 11/05/2021 at 14:32
== END ==
PROVIDERS: Family Provider Internal Medicine; PCP Internal Medicine; Referring Provider Surgery; Visit Provider Surgery
DX: R50.82 Postprocedural fever (principal); K44.9 Diaphragmatic hernia without obstruction or gangrene; K76.0 Fatty (change of) liver, not elsewhere classified; N28.1 Cyst of kidney, acquired; Z98.890 Other specified postprocedural states; Z90.49 Acquired absence of other specified parts of digestive tract; Z87.19 Personal history of other diseases of the digestive system
CPT/HCPCS: 74176

== ENCOUNTER 2022-11-27 10:42 | Inpatient (IN) | payer OTHER, SELFPAY ==
[2021-07-29 13:37] VITALS: BMI 37.5
[2022-11-27] VITALS (29 sets, daily range): BP systolic 98–152; BP diastolic 47–76; PULSE 85–115; RESP 18–32; TEMP 35.6–38; O2SAT 84–97; BMI 34.9
--- NOTE | 2022-11-27 11:08 | DI.RAD.S_ITS ---
PROCEDURE: XR CHEST 1V INDICATIONS: Short of breath TECHNIQUE: One view of the chest was acquired. COMPARISON: [facility], CR, XR CHEST 1V, 12/19/2018, 21:24. [facility], CR, XR CHEST 2 VIEWS, 12/12/2017, 12:59. [facility], CR, XR CHEST 2V, 03/29/2020, 13:30. FINDINGS: Surgical changes and devices: There is a stable right-sided chest port. Lungs and pleura: Poorly defined opacities can be seen in both lung bases, left worse than right. Low lung volumes are noted. This causes a crowded appearance to the lung markings and limits evaluation. On this semiupright portable chest examination, no large pneumothorax or large pleural effusions are seen. Mediastinum: Mediastinal contours appear normal. Heart size is normal. Bones and chest wall: No suspicious bony lesions. Age-appropriate bony degenerative changes are seen. Overlying soft tissues appear unremarkable. IMPRESSION: Poorly defined opacities at both lung bases, left worse than right. Atelectasis is suspected, although differential diagnosis includes mild infiltrate. Low lung volumes can be seen. Postoperative and degenerative changes are seen. Dictated by: Valdez Levine M.D. on 11/27/2022 at 11:00 Approved by: Valdez Levine M.D. on 11/27/2022 at 11:01
--- NOTE | 2022-11-27 11:37 | ED_ITS ---
HPI - SOB/Dyspnea General Chief Complaint: Fever Stated Complaint: SOB, possible lung infection Time Seen by Provider: 11/27/22 11:07 Source: patient and family Mode of arrival: Ambulatory Limitations: no limitations History of Present Illness HPI Narrative: 62F former smoker with COPD and alpha-1 antitrypsin deficiency presents with upwards of 1 week of fever as high as 103, chills, shortness of breath and inc reasing sputum production. She arrives today stating she is had worsening symptoms and feels like enough is enough. She is not dizzy nor weak or lightheaded. She does not normally require supplemental oxygen but on arrival is short of breath with O2 in the mid 80s. She is been producing increasing amounts of yellowish sputum despite the use of various znnu-rtd-qupirap medications at home. On at least 1 occasion her cough was sufficiently rough that it caused her to vomit but vomiting has not been an ongoing issue. She denies abdominal pain, diarrhea, constipation. She denies obvious exposure to known ill persons but does work with the [employer] Home Medications Medication Instructions Recorded Confirmed alpha-1 proteinase inhib.(hum) 60 mg/kg IV QWEEK 12/21/18 08/24/21 1,000 mg intravenous solution (Prolastin-C) ipratropium 0.5 mg-albuterol 3 mg 1 neb inhalation QID 12/21/18 08/24/21 (2.5 mg base)/3 mL nebulization soln fluticasone 250 mcg-salmeterol 50 1 inh inhalation BID 01/10/20 08/24/21 mcg/dose blistr powdr for inhalation levothyroxine 100 mcg capsule 100 mcg PO DAILY 01/10/20 08/24/21 levothyroxine 25 mcg tablet 01/10/20 08/24/21 levothyroxine 50 mcg tablet 01/10/20 08/24/21 montelukast 10 mg tablet 10 mg PO DAILY 01/10/20 08/24/21 Respironics BIPAP System One 60 #1 ea 08/24/21 Allergies Allergy/AdvReac Type Severity Reaction Status Date / Time cephalexin [CEPHALEXIN] Allergy Severe NAUSEA/VOMI Verified 11/27/22 11:20 TING Iodinated Contrast Media Allergy Severe SWELLING/FAST Verified 11/27/22 11:20 [IODINATED CONTRAST MEDIA - HEART RATE IV DYE] povidone-iodine Allergy Severe facial, Verified 11/27/22 11:20 [From BETADINE] truck swelling soap [From BETADINE] Allergy Severe facial, Verified 11/27/22 11:20 truck swelling Review of Systems Review of Systems Narrative: GENERAL: See HPI HEENT: See HPI RESPIRATORY: See HPI CARDIOVASCULAR: See HPI GASTROINTESTINAL: See HPI : Denies dysuria, frequency, incontinence, hematuria, urinary retention. MUSCULOSKELETAL: denies weakness, joint pain, or bony pain SKIN: Denies rash, skin lesions, or other NEUROLOGIC: Denies weakness, headache, numbness, change in speech, confusion, seizures, incoordination. PSYCHIATRIC: No concerning psychosocial issues. 12 point review of systems is negative except for those stated above Patient History Medical History (Updated 11/27/22 @ 13:27 by Kalia Gandara DO) [id number] deficiency Social History household members: spouse Smoking Status: Former smoker Smoking Status: Former smoker alcohol intake frequency: holidays/special occasions only Substance Use Type: does not use Exam Narrative Exam Narrative: GENERAL: [62] year old patient appears stated age. Well-developed patient, in mild distress. HEAD: Atraumatic. Normocephalic. EYES: Pupils equal round and reactive. Extraocular motions intact. No scleral icterus. No injection or drainage. ENT: Nose without bleeding, purulent drainage. Throat without erythema, tonsillar hypertrophy or exudate. Airway patent. NECK: Trachea midline. Non tender CARDIOVASCULAR: Regular rate and rhythm without murmurs, gallops, or rubs. RESPIRATORY: Prolonged expiratory phase the decreased sounds throughout, faint crackles in bilateral bases GASTROINTESTINAL: Abdomen soft, non-tender, nondistended. EXTREMITIES: No edema or joint tenderness. BACK: Nontender without deformity or crepitance. No flank tenderness. NEURO: AOx3. SKIN: No rash or erythema of visible areas Initial Vital Signs Initial Vital Signs: Vital Signs Temperature 100.4 F H 11/27/22 10:45 Pulse Rate 112 H 11/27/22 10:45 Respiratory Rate 32 H 11/27/22 10:45 Blood Pressure 126/76 11/27/22 10:45 Pulse Oximetry 84 L 11/27/22 10:45 Oxygen Delivery Method 11/27/22 10:45 Course Orders Ordered: ED Orders 11/27/22 11:08 Chest [XR chest 1V] Stat EKG-12 Lead Stat 11/27/22 11:40 Sputum Culture Stat 11/27/22 11:44 Respiratory Panel (Film Array) Stat 11/27/22 12:00 Basic Metabolic Panel Stat Blood Culture Stat Complete Blood Count AUTO DIFF Stat D Dimer Stat Lactate (Lactic Acid) Stat Lipase Stat Magnesium Stat NT-proBNP (BNP-Adult 18+) Stat Partial Thromboplastin Time Stat Procalcitonin Stat Prothrombin Time INR Stat Troponin & CK Cardiac Panel Stat 11/27/22 12:18 ABG [Arterial Blood Gas] Stat Lactated Ringer's (Lactated Ringers) 1,710 mls @ 570 mls/hr 30 ml/kg infuse over 3 hr (1710 ml) IV NOW ONE Stop: 11/27/22 14:49 Last Admin: 11/27/22 12:15 Dose: 570 mls/hr Documented By: SYL Discontinued Medications Diphenhydramine HCl (Diphenhydramine 50 Mg/Ml Vial) 25 mg IV NOW ONE Stop: 11/27/22 13:05 Enoxaparin Sodium (Enoxaparin 100 Mg/Ml Syringe) 95 mg 1 mg/kg (95 mg) SUBCUT NOW ONE Stop: 11/27/22 13:31 Last Admin: 11/27/22 14:04 Dose: 95 mg Famotidine (Famotidine 20 Mg/2 Ml Vial) 20 mg IV NOW ISH Famotidine (Famotidine 20 Mg/2 Ml Vial) 20 mg IV NOW ONE Stop: 11/27/22 13:16 Last Admin: 11/27/22 14:04 Dose: 20 mg Levofloxacin (Levaquin) 750 mg in 150 mls @ 100 mls/hr IV NOW ONE Stop: 11/27/22 13:19 Last Admin: 11/27/22 12:19 Dose: 100 mls/hr Documented By: SYL Methylprednisolone (Methylprednisolone 125 Mg/2 Ml Vial) 125 mg IV NOW ONE Stop: 11/27/22 13:05 Last Admin: 11/27/22 14:04 Dose: 125 mg Vital Signs Vital signs: Vital Signs - 8 hr 11/27/22 10:45 11/27/22 10:57 11/27/22 10:57 Temperature 100.4 F H Pulse Rate 112 H 115 H Respiratory Rate 32 H Blood Pressure 126/76 126/76 Pulse Oximetry 84 L 92 Oxygen Delivery Method Room Air Nasal Cannula Oxygen Flow Rate 2 11/27/22 11:00 11/27/22 11:00 11/27/22 11:15 Temperature Pulse Rate 110 H 107 H Respiratory Rate Blood Pressure 111/54 L Pulse Oximetry 93 94 Oxygen Delivery Method Nasal Cannula Oxygen Flow Rate 2 2 11/27/22 11:30 11/27/22 11:30 11/27/22 11:45 Temperature Pulse Rate 98 H 103 H Respiratory Rate Blood Pressure 120/57 L Pulse Oximetry 93 92 Oxygen Delivery Method Nasal Cannula Oxygen Flow Rate 2 11/27/22 12:00 11/27/22 12:00 11/27/22 12:15 Temperature Pulse Rate 100 H 101 H Respiratory Rate Blood Pressure 112/60 Pulse Oximetry 94 91 Oxygen Delivery Method Oxygen Flow Rate 11/27/22 12:30 11/27/22 12:45 Temperature Pulse Rate 104 H 102 H Respiratory Rate Blood Pressure Pulse Oximetry 91 90 L Oxygen Delivery Method Room Air Oxygen Flow Rate MDM - SOB/Dyspnea Lab Data Result diagrams: 11/27/22 12:00 11/27/22 12:00 Labs: Lab Results 11/27/22 11/27/22 11/27/22 Range/Units 11:44 12:00 12:00 WBC (4.5-11.0) X10^3/uL RBC (4.0-5.2) X10^6/uL Hgb (12.0-16.0) g/dL Hct (36-46) % MCV (80-100) fL MCH (26-34) PG MCHC (30-36) % RDW (11.6-14.8) % Plt Count (150-400) X10^3/uL Neut % (Auto) (50-75) % Lymph % (Auto) (25-40) % [place] % (Auto) (3-14) % Eos % (Auto) (2-4) % Baso % (Auto) (0-2) % Neut # (Auto) (7467-8526) /uL Lymph # (Auto) (4953-3672) /uL [place] # (Auto) (0-900) /uL Eos # (Auto) (0-450) /uL Baso # (Auto) (0-100) /uL PT (10.1-12.7) SECONDS INR (0.9-1.3) APTT (26-36) SECONDS D-Dimer 1567 H (<500) ng/ml ABG pH (7.35-7.45) ABG pCO2 (35-45) mmHg ABG pO2 (80-100) mmHg ABG HCO3 (22-26) mmol/L ABG Total CO2 (21-31) mmol/L ABG O2 Saturation (95-100) % ABG Base Excess (-2-2) mmol/L FiO2 Sodium (137-145) mmol/L Potassium (3.4-5.1) mmol/L Chloride (98-107) mmol/L Carbon Dioxide (22-32) mmol/L BUN (7-17) mg/dL Creatinine (0.52-1.04) mg/dL Estimated GFR (>60) mL/min BUN/Creatinine Ratio (6-22) Glucose (80-110) mg/dL Lactate (0.7-2.1) mmol/L Calcium (8.4-10.2) mg/dL Magnesium (1.6-2.3) mg/dL Total Creatine Kinase (30-135) U/L CK-MB (CK-2) (<2.37) ng/mL CK-MB (CK-2) Rel Index (1.5-5.0) % Troponin I (0.01-0.034) ng/mL NT-Pro-B Natriuret Pep (<125) pg/mL Lipase (23-300) U/L Procalcitonin 0.55 H (<0.5) ng/mL Chlamy pneumoniae PCR Not detected (Not Detect) Adenovirus (PCR) Not detected (Not Detect) B. pertussis DNA (PCR) Not detected (Not Detecte) B.parapertussis DNA PCR Not detected (Not Detecte) Coronavirus OC43 (PCR) Not detected (Not Detect) Coronavirus HKU1 (PCR) Not detected (Not Detect) Coronavirus 229E (PCR) Not detected (Not Detect) SARS-CoV-2 (PCR) Not detected (Not Detecte) Coronavirus NL63 (PCR) Not detected (Not Detect) Human Metapneumovir PCR Not detected (Not Detect) Influenza Type A (PCR) Not detected (Not Detect) Influenza Type B (PCR) Not detected (Not Detect) M. pneumoniae (PCR) Not detected (Not Detect) Parainfluenza 1 (PCR) Not detected (Not Detect) Parainfluenza 2 (PCR) Not detected (Not Detect) Parainfluenza 3 (PCR) Not detected (Not Detect) Parainfluenza 4 (PCR) Not detected (Not Detect) RSV (PCR) Not detected (Not Detect) Entero/Rhino (PCR) Not detected (Not Detect) 11/27/22 11/27/22 11/27/22 Range/Units 12:00 12:00 12:00 WBC 14.4 H (4.5-11.0) X10^3/uL RBC 4.85 (4.0-5.2) X10^6/uL Hgb 13.9 (12.0-16.0) g/dL Hct 41.6 (36-46) % MCV 85.8 (80-100) fL MCH 28.6 (26-34) PG MCHC 33.4 (30-36) % RDW 15.6 H (11.6-14.8) % Plt Count 299 (150-400) X10^3/uL Neut % (Auto) 85.6 H (50-75) % Lymph % (Auto) 3.8 L (25-40) % [place] % (Auto) 10.0 (3-14) % Eos % (Auto) 0.1 L (2-4) % Baso % (Auto) 0.5 (0-2) % Neut # (Auto) 93790 H (5270-0047) /uL Lymph # (Auto) 500 L (3130-9046) /uL [place] # (Auto) 1400 H (0-900) /uL Eos # (Auto) 0 (0-450) /uL Baso # (Auto) 100 (0-100) /uL PT 15.5 H (10.1-12.7) SECONDS INR 1.3 (0.9-1.3) APTT 32 (26-36) SECONDS D-Dimer (<500) ng/ml ABG pH (7.35-7.45) ABG pCO2 (35-45) mmHg ABG pO2 (80-100) mmHg ABG HCO3 (22-26) mmol/L ABG Total CO2 (21-31) mmol/L ABG O2 Saturation (95-100) % ABG Base Excess (-2-2) mmol/L FiO2 Sodium 138 (137-145) mmol/L Potassium 4.1 (3.4-5.1) mmol/L Chloride 101 (98-107) mmol/L Carbon Dioxide 22 (22-32) mmol/L BUN 21 H (7-17) mg/dL Creatinine 0.85 (0.52-1.04) mg/dL Estimated GFR > 60 (>60) mL/min BUN/Creatinine Ratio 24.7 H (6-22) Glucose 124 H (80-110) mg/dL Lactate (0.7-2.1) mmol/L Calcium 8.8 (8.4-10.2) mg/dL Magnesium 2.0 (1.6-2.3) mg/dL Total Creatine Kinase 210 H (30-135) U/L CK-MB (CK-2) 2.04 (<2.37) ng/mL CK-MB (CK-2) Rel Index 1.0 L (1.5-5.0) % Troponin I < 0.012 (0.01-0.034) ng/mL NT-Pro-B Natriuret Pep 54 (<125) pg/mL Lipase 67 (23-300) U/L Procalcitonin (<0.5) ng/mL Chlamy pneumoniae PCR (Not Detect) Adenovirus (PCR) (Not Detect) B. pertussis DNA (PCR) (Not Detecte) B.parapertussis DNA PCR (Not Detecte) Coronavirus OC43 (PCR) (Not Detect) Coronavirus HKU1 (PCR) (Not Detect) Coronavirus 229E (PCR) (Not Detect) SARS-CoV-2 (PCR) (Not Detecte) Coronavirus NL63 (PCR) (Not Detect) Human Metapneumovir PCR (Not Detect) Influenza Type A (PCR) (Not Detect) Influenza Type B (PCR) (Not Detect) M. pneumoniae (PCR) (Not Detect) Parainfluenza 1 (PCR) (Not Detect) Parainfluenza 2 (PCR) (Not Detect) Parainfluenza 3 (PCR) (Not Detect) Parainfluenza 4 (PCR) (Not Detect) RSV (PCR) (Not Detect) Entero/Rhino (PCR) (Not Detect) 11/27/22 11/27/22 Range/Units 12:00 12:18 WBC (4.5-11.0) X10^3/uL RBC (4.0-5.2) X10^6/uL Hgb (12.0-16.0) g/dL Hct (36-46) % MCV (80-100) fL MCH (26-34) PG MCHC (30-36) % RDW (11.6-14.8) % Plt Count (150-400) X10^3/uL Neut % (Auto) (50-75) % Lymph % (Auto) (25-40) % [place] % (Auto) (3-14) % Eos % (Auto) (2-4) % Baso % (Auto) (0-2) % Neut # (Auto) (9151-6343) /uL Lymph # (Auto) (1712-3223) /uL [place] # (Auto) (0-900) /uL Eos # (Auto) (0-450) /uL Baso # (Auto) (0-100) /uL PT (10.1-12.7) SECONDS INR (0.9-1.3) APTT (26-36) SECONDS D-Dimer (<500) ng/ml ABG pH 7.45 (7.35-7.45) ABG pCO2 31.7 L (35-45) mmHg ABG pO2 50 L (80-100) mmHg ABG HCO3 22 (22-26) mmol/L ABG Total CO2 23 (21-31) mmol/L ABG O2 Saturation 87 L (95-100) % ABG Base Excess -2.0 (-2-2) mmol/L FiO2 21 Sodium (137-145) mmol/L Potassium (3.4-5.1) mmol/L Chloride (98-107) mmol/L Carbon Dioxide (22-32) mmol/L BUN (7-17) mg/dL Creatinine (0.52-1.04) mg/dL Estimated GFR (>60) mL/min BUN/Creatinine Ratio (6-22) Glucose (80-110) mg/dL Lactate 1.4 (0.7-2.1) mmol/L Calcium (8.4-10.2) mg/dL Magnesium (1.6-2.3) mg/dL Total Creatine Kinase (30-135) U/L CK-MB (CK-2) (<2.37) ng/mL CK-MB (CK-2) Rel Index (1.5-5.0) % Troponin I (0.01-0.034) ng/mL NT-Pro-B Natriuret Pep (<125) pg/mL Lipase (23-300) U/L Procalcitonin (<0.5) ng/mL Chlamy pneumoniae PCR (Not Detect) Adenovirus (PCR) (Not Detect) B. pertussis DNA (PCR) (Not Detecte) B.parapertussis DNA PCR (Not Detecte) Coronavirus OC43 (PCR) (Not Detect) Coronavirus HKU1 (PCR) (Not Detect) Coronavirus 229E (PCR) (Not Detect) SARS-CoV-2 (PCR) (Not Detecte) Coronavirus NL63 (PCR) (Not Detect) Human Metapneumovir PCR (Not Detect) Influenza Type A (PCR) (Not Detect) Influenza Type B (PCR) (Not Detect) M. pneumoniae (PCR) (Not Detect) Parainfluenza 1 (PCR) (Not Detect) Parainfluenza 2 (PCR) (Not Detect) Parainfluenza 3 (PCR) (Not Detect) Parainfluenza 4 (PCR) (Not Detect) RSV (PCR) (Not Detect) Entero/Rhino (PCR) (Not Detect) Imaging Data Chest x-ray: Radiologist's Impression: [address] [address] XRay Report Signed Patient: Alyse Rios MR#: [id number] : 1960 Acct:[id number] Age/Sex: 62 / F Date of Service: 11/27/22 Loc: ED Accession Number: [id number] ?? Procedure: XR chest 1V Ordering Provider: Kalia Gandara D.O. PROCEDURE:? XR CHEST 1V ? INDICATIONS:? Short of breath ? TECHNIQUE:? One view of the chest was acquired.? ? COMPARISON:? [facility], CR, XR CHEST 1V, 12/19/2018, 21:24.? [facility], CR, XR CHEST 2 VIEWS, 12/12/2017, 12:59.? [facility], CR, XR CHEST 2V, 03/29/2020, 13:30. ? FINDINGS:? ? Surgical changes and devices:? There is a stable right-sided chest port. ? Lungs and pleura:? Poorly defined opacities can be seen in both lung bases, left worse than right. Low lung volumes are noted. This causes a crowded appearance to the lung markings and limits evaluation.? On this semiupright portable chest examination, no large pneumothorax or large pleural effusions are seen.? ? Mediastinum:? Mediastinal contours appear normal.? Heart size is normal.? ? Bones and chest wall:? No suspicious bony lesions.? Age-appropriate bony degenerative changes are seen.? Overlying soft tissues appear unremarkable.? ? ? IMPRESSION:? Poorly defined opacities at both lung bases, left worse than right.? Atelectasis is suspected, although differential diagnosis includes mild infiltrate. ? Low lung volumes can be seen. ? Postoperative and degenerative changes are seen.? ? ? Dictated by: Valdez Levine M.D. on 11/27/2022 at 11:00 ? ? Approved by: Valdez Levine M.D. on 11/27/2022 at 11:01 ? [facility] Narrative Medical decision making narrative: 62-year-old female with history of alpha 1 antitrypsin deficiency, COPD presents with fever shortness of breath and yellow sputum production. She is hypoxemic with PO2 on room air of 50, requires 2 L of oxygen by nasal cannula. She meets sepsis criteria chest x-ray demonstrates bilateral infiltrates. She does have an elevated white blood cell count and a slightly elevated procalcitonin. She appears well and quite comfortable on 2 L by nasal cannula. Fluids and oxygen have been administered and heart rate is improved, down into the 80s. Though patient's presentation is highly suggestive of an infectious etiology she does h ave an elevated D-dimer. She reports a significant reaction to IV contrast even when she is been pretreated. She is given a treatment dose of Lovenox at 1 vladimir per kg in the department and admitted without obtaining a CTA at this time, this decision was made after discussion with hospitalist who is happy to accept her on his service Discharge Plan Departure Patient Disposition: Admitted As Inpatient Clinical Impression: Sepsis, Pneumonia, Acute hypoxemic respiratory failure Admit Date/Time: 11/27/22 13:23 Admit Provider: Bill Genao
[2022-11-27] MEDS: LACTATED RINGERS 570 ML IV (12:15)
[2022-11-27] MEDS: levoFLOXacin 750 MG/150 ML PIGGYBACK 100 MG IV (12:19)
[2022-11-27 12:30] LABS: Fractionated Inspired Oxygen 21; HCO3 ABG 22 mmol/L (22-26); Oxygen Saturation ABG 87 % (95-100); PCO2 ABG 31.7 mmHg (35-45); PO2 ABG 50 mmHg (80-100); TCO2 ABG 23 mmol/L (21-31); pH ABG 7.45 (7.35-7.45)
[2022-11-27 12:35] LABS: INR 1.3 (0.9-1.3); Prothrombin Time 15.5 SECONDS (10.1-12.7)
[2022-11-27 12:37] LABS: PTT Partial Thromboplastin Tim 32 SECONDS (26-36)
[2022-11-27 12:38] LABS: Add Manual Diff / Slide Review NO; Basophils Absolute Auto 100 /uL (0-100); Basophils Percent Auto 0.5 % (0-2); Eosinophils Absolute Auto 0 /uL (0-450); Eosinophils Percent Auto 0.1 % (2-4); Hematocrit 41.6 % (36-46); Hemoglobin 13.9 g/dL (12.0-16.0); Lymphocytes Absolute Auto 500 /uL (1100-4500); Lymphocytes Percent Auto 3.8 % (25-40); Mean Corpuscular HGB Conc 33.4 % (30-36); Mean Corpuscular Hemoglobin 28.6 PG (26-34); Mean Corpuscular Volume 85.8 fL (80-100); Monocytes Absolute Auto 1400 /uL (0-900); Neutrophils Absolute Auto 12300 /uL (1500-7000); Neutrophils Percent Auto 85.6 % (50-75); Platelet Count 299 X10^3/uL (150-400); Red Blood Cell Count 4.85 X10^6/uL (4.0-5.2); Red Cell Distribution Width 15.6 % (11.6-14.8); White Blood Cell Count 14.4 X10^3/uL (4.5-11.0)
[2022-11-27 12:49] LABS: D Dimer 1567 ng/ml (<500)
[2022-11-27 12:54] LABS: Lactate (Lactic Acid) 1.4 mmol/L (0.7-2.1)
[2022-11-27 12:55] LABS: BUN Creatinine Ratio 24.7 (6-22); Blood Urea Nitrogen 21 mg/dL (7-17); Calcium 8.8 mg/dL (8.4-10.2); Carbon Dioxide 22 mmol/L (22-32); Chloride 101 mmol/L (98-107); Creatine Kinase 210 U/L (30-135); Estimated Glomerular Filt Rate > 60 mL/min (>60); Glucose 124 mg/dL (80-110); HEMOLYSIS < 15 (0-50); Lipase 67 U/L (23-300); Potassium 4.1 mmol/L (3.4-5.1); Sodium 138 mmol/L (137-145)
[2022-11-27 12:57] LABS: Adenovirus Not Detected (Not Detect); B. parapertussis Not Detected (Not Detecte); Coronavirus 229E Not Detected (Not Detect); Coronavirus HKU1 Not Detected (Not Detect); Coronavirus NL 63 Not Detected (Not Detect); Coronavirus OC43 Not Detected (Not Detect); Human Metapneumovirus Not Detected (Not Detect); Human Rhinovirus/Enterovirus Not Detected (Not Detect); Influenza A Not Detected (Not Detect); Influenza B Not Detected (Not Detect); Parainfluenza Virus 1 Not Detected (Not Detect); Parainfluenza Virus 2 Not Detected (Not Detect); Parainfluenza Virus 3 Not Detected (Not Detect); Parainfluenza Virus 4 Not Detected (Not Detect); Respiratory Syncytial Virus Not Detected (Not Detect); SARS- CoV-2 Not Detected (Not Detecte)
[2022-11-27 12:58] LABS: Bordetella pertussis Not Detected (Not Detecte); Chlamydophila pneumoniae Not Detected (Not Detect); Mycoplasma pneumoniae Not Detected (Not Detect)
[2022-11-27 13:07] LABS: NT-proBNP (BNP-Adult 18+) 54 pg/mL (<125); Troponin I < 0.012 ng/mL (0.01-0.034)
[2022-11-27 13:10] LABS: Creatine Kinase MB 2.04 ng/mL (<2.37)
[2022-11-27 13:11] LABS: Procalcitonin 0.55 ng/mL (<0.5)
[2022-11-27] MEDS: methylPREDNISolone 125 MG/2 ML VIAL IV (14:04)
[2022-11-27] MEDS: ENOXAPARIN 100 MG/ML SYRINGE 95 MG SUBCUT (14:04)
[2022-11-27] MEDS: FAMOTIDINE 20 MG/2 ML VIAL IV (14:04)
[2022-11-27] MEDS: ALBUTEROL/IPRATROPIUM 3 ML AMPUL INH ×2 (15:33→19:09)
--- NOTE | 2022-11-27 16:28 | P.HP_ITS ---
History of Present Illness History of Present Illness Date Patient Seen: 11/27/22 Time Patient Seen: 16:31 Chief complaint: SOB, possible lung infection Narrative: This is a 62 year old female, with PMH of COPD, A1AT, YULI who presents with shortness of breath, fever, and cough for the past 5 days. Patient states that she began feeling generally ill 5 days ago, then quickly developed severe lethargy and high fevers to as high as 103 F at home. She developed cough, productive with yellow sputum. She continued to take her home nebulizers and treatments, but did not start any steroids or antitbiotics at home. She follows with pulmonology for her COPD and A1AT deficiency. She felt better a couple of days ago, but remained febrile and the last two days she worsened again then developing some left scapular pain with deep breaths, and worsening dyspnea on exertion. She denies abdominal pain, dysuria, urinary frequency, diarrhea or constipation. Further history obtained from discussion with the ER provider. She reports severe facial swelling with iodinated contrast, but does okay with non-iodinated contrast in the past. CXR showed bibasilar opacities, new since her prior imaging study. She was hypoxic on room air to 84, improved with a couple L of supplemental oxygen. Laboratory evaluation revealed a leukocytosis with WBC of 14.4, an elevated D-dimer of 1567, and an unremarkable chemistry panel. Procalcitonin was elevated at 0.55. Respiratory panel was negative. Patient was given levofloxacin given prior cephalosporin allergy, Solu-Medrol, and therapeutic doses of Lovenox given the elevated D-dimer and inability to perform CT angiogram at this time given her severe contrast allergy. She was admitted for further management of acute hypoxic respiratory failure in the setting of community-acquired bacterial pneumonia. PMH: COPD, alpha 1 antitrypsin deficiency, YULI PSH:? Cholecystectomy, hernia repair (x2), Port-A-Cath insertion, pilonidal cyst resection, corneal transplant, hydradenitis surgery FHx:? Mother and father both have alpha 1 antitrypsin deficiency, grandmother () heart disease. SHx:? . Lives at home with her partner.? Employed with [employer].? Reports a 20 pack year history of tobacco use, quit 30 years ago.? Denies alcohol and recreational drug use. Patient History Medical History (Updated 11/27/22 @ 16:29 by Bill Genao DO) Hiwxn-[id number] deficiency COPD (chronic obstructive pulmonary disease) Surgical History (Updated 11/27/22 @ 16:29 by Bill Genao DO) H/O hernia repair History of cholecystectomy History of insertion of tunneled central venous catheter (CVC) with port Family & Social History Family History (Updated 11/27/22 @ 16:30 by Bill Genao DO) Mother Kysne-5-yjmxntpumhn deficiency Father Gkkmz-8-jolhrnxoqph deficiency Social History: household members spouse Safety & Behavioral: Feels Safe in Current Yes Environment Been Physically Hurt or No Threatened By a Person Tobacco & Substance use: Smoking Status Former smoker alcohol intake frequency holiday/special occasion Substance Use Type does not use Meds Home Medications and Allergies Home Medications Medication Instructions Recorded Confirmed Type alpha-1 proteinase inhib.(hum) 60 mg/kg IV QWEEK 12/21/18 11/27/22 History 1,000 mg intravenous solution (Prolastin-C) ipratropium 0.5 mg-albuterol 3 mg 1 neb inhalation QID 12/21/18 11/27/22 History (2.5 mg base)/3 mL nebulization soln fluticasone 250 mcg-salmeterol 50 1 inh inhalation BID 01/10/20 11/27/22 History mcg/dose blistr powdr for inhalation levothyroxine 50 mcg tablet 50 mcg PO DAILY 01/10/20 11/27/22 History montelukast 10 mg tablet 10 mg PO DAILY 01/10/20 11/27/22 History Respironics BIPAP System One 60 #1 ea 08/24/21 11/27/22 History Allergies Allergy/AdvReac Type Severity Reaction Status Date / Time cephalexin [CEPHALEXIN] Allergy Severe NAUSEA/VOMI Verified 11/27/22 11:20 TING Iodinated Contrast Media Allergy Severe SWELLING/FAST Verified 11/27/22 11:20 [IODINATED CONTRAST MEDIA - HEART RATE IV DYE] povidone-iodine Allergy Severe facial, Verified 11/27/22 11:20 [From BETADINE] truck swelling soap [From BETADINE] Allergy Severe facial, Verified 11/27/22 11:20 truck swelling Review of Systems Review of Systems Narrative: All other systems reviewed with the patient and are negative unless otherwise stated. Exam Vital Signs (past 8 hours): - 11/27/22 10:45 11/27/22 10:57 11/27/22 10:57 Temperature 100.4 F H Pulse Rate 112 H 115 H Respiratory Rate 32 H Blood Pressure 126/76 126/76 Pulse Oximetry 84 L 92 Oxygen Delivery Method Room Air Nasal Cannula Oxygen Flow Rate 2 Fraction of Inspired Oxygen 11/27/22 11:00 11/27/22 11:00 11/27/22 11:15 Temperature Pulse Rate 110 H 107 H Respiratory Rate Blood Pressure 111/54 L Pulse Oximetry 93 94 Oxygen Delivery Method Nasal Cannula Oxygen Flow Rate 2 2 Fraction of Inspired Oxygen 11/27/22 11:30 11/27/22 11:30 11/27/22 11:45 Temperature Pulse Rate 98 H 103 H Respiratory Rate Blood Pressure 120/57 L Pulse Oximetry 93 92 Oxygen Delivery Method Nasal Cannula Oxygen Flow Rate 2 Fraction of Inspired Oxygen 11/27/22 12:00 11/27/22 12:00 11/27/22 12:15 Temperature Pulse Rate 100 H 101 H Respiratory Rate Blood Pressure 112/60 Pulse Oximetry 94 91 Oxygen Delivery Method Oxygen Flow Rate Fraction of Inspired Oxygen 11/27/22 12:30 11/27/22 12:45 11/27/22 13:00 Temperature Pulse Rate 104 H 102 H Respiratory Rate Blood Pressure 125/58 L Pulse Oximetry 91 90 L Oxygen Delivery Method Room Air Oxygen Flow Rate Fraction of Inspired Oxygen 11/27/22 13:00 11/27/22 13:15 11/27/22 13:28 Temperature Pulse Rate 100 H 100 H Respiratory Rate Blood Pressure Pulse Oximetry 93 94 94 Oxygen Delivery Method Nasal Cannula Oxygen Flow Rate 2 Fraction of Inspired Oxygen 11/27/22 13:30 11/27/22 13:56 11/27/22 14:00 Temperature Pulse Rate 91 H 103 H Respiratory Rate Blood Pressure 116/67 Pulse Oximetry 92 Oxygen Delivery Method Oxygen Flow Rate Fraction of Inspired Oxygen 11/27/22 14:01 11/27/22 14:01 11/27/22 14:15 Temperature Pulse Rate 104 H 105 H Respiratory Rate 24 Blood Pressure 137/61 Pulse Oximetry 96 97 Oxygen Delivery Method Nasal Cannula Oxygen Flow Rate 2 Fraction of Inspired Oxygen 11/27/22 14:30 11/27/22 14:30 11/27/22 14:45 Temperature Pulse Rate 107 H 106 H Respiratory Rate 28 H Blood Pressure 138/61 Pulse Oximetry 93 91 Oxygen Delivery Method Nasal Cannula Oxygen Flow Rate 2 Fraction of Inspired Oxygen 11/27/22 15:00 11/27/22 15:00 11/27/22 15:15 Temperature Pulse Rate 103 H 100 H Respiratory Rate 26 H Blood Pressure 152/65 H Pulse Oximetry 91 91 Oxygen Delivery Method Nasal Cannula Oxygen Flow Rate 2 Fraction of Inspired Oxygen 11/27/22 15:34 11/27/22 15:30 11/27/22 15:30 Temperature Pulse Rate 101 H 100 H Respiratory Rate 18 22 Blood Pressure 144/62 H Pulse Oximetry 91 90 L Oxygen Delivery Method Nasal Cannula Nasal Cannula Oxygen Flow Rate 2 2 Fraction of Inspired Oxygen 28 11/27/22 15:45 Temperature Pulse Rate 102 H Respiratory Rate Blood Pressure Pulse Oximetry 91 Oxygen Delivery Method Oxygen Flow Rate Fraction of Inspired Oxygen Fraction of Inspired Oxygen 28 SaO2/FiO2 Ratio 325 Oxygen Delivery Method Nasal Cannula Oxygen Flow Rate 2 Narrative Exam Narrative: General:? Patient is well developed and well nourished, in no distress at this time. Short of breath with prolonged sentences, occasional violent cough. HEENT:? Normocephalic, atraumatic, extraocular muscles intact, oral pharynx is clear and mucous membranes are moist. Neck: supple and symmetric, trachea is midline, no cervical adenopathy. Chest:? Normal AP diameter and contour without kyphoscoliosis, no tachypnea, equal chest rise bilaterally. Lungs:? bibasilar rales, minimal air movement bilaterally, upper lobes cta b/l. Cardio:?RRR no m/r/g. Abdomen: soft, non-distended Musculoskeletal:? Muscle strength and tone are equal within normal limits, no deformity. Extremities: No edema or joint effusions. No cyanosis or clubbing. Skin:? Pale,? Warm to touch,dry and intact without rashes, ulcerations or petech iae.? Neuro:? Alert and orientated x3,? sensation to touch intact in all extremities, no gross deficits noted of cranial nerves. Psych:? Patient has a well-kept appearance, appropriate affect, mental status attitude thought context and judgment are appropriate for age. Objective ECG Impression: Sinus tachycardia with premature atrial complexes without evidence of acute ischemia as interpreted by me. Labs Result Diagrams: 11/27/22 12:00 11/27/22 12:00 Labs: Laboratory Results - last 24 hr 11/27/22 11/27/22 11/27/22 11:44 12:00 12:00 WBC RBC Hgb Hct MCV MCH MCHC RDW Plt Count Neut % (Auto) Lymph % (Auto) [place] % (Auto) Eos % (Auto) Baso % (Auto) Neut # (Auto) Lymph # (Auto) [place] # (Auto) Eos # (Auto) Baso # (Auto) PT INR APTT D-Dimer 1567 H ABG pH ABG pCO2 ABG pO2 ABG HCO3 ABG Total CO2 ABG O2 Saturation ABG Base Excess FiO2 Sodium Potassium Chloride Carbon Dioxide BUN Creatinine Estimated GFR BUN/Creatinine Ratio Glucose Lactate Calcium Magnesium Total Creatine Kinase CK-MB (CK-2) CK-MB (CK-2) Rel Index Troponin I NT-Pro-B Natriuret Pep Lipase Procalcitonin 0.55 H Chlamy pneumoniae PCR Not detected Adenovirus (PCR) Not detected B. pertussis DNA (PCR) Not detected B.parapertussis DNA PCR Not detected Coronavirus OC43 (PCR) Not detected Coronavirus HKU1 (PCR) Not detected Coronavirus 229E (PCR) Not detected SARS-CoV-2 (PCR) Not detected Coronavirus NL63 (PCR) Not detected Human Metapneumovir PCR Not detected Influenza Type A (PCR) Not detected Influenza Type B (PCR) Not detected M. pneumoniae (PCR) Not detected Parainfluenza 1 (PCR) Not detected Parainfluenza 2 (PCR) Not detected Parainfluenza 3 (PCR) Not detected Parainfluenza 4 (PCR) Not detected RSV (PCR) Not detected Entero/Rhino (PCR) Not detected 11/27/22 11/27/22 11/27/22 12:00 12:00 12:00 WBC 14.4 H RBC 4.85 Hgb 13.9 Hct 41.6 MCV 85.8 MCH 28.6 MCHC 33.4 RDW 15.6 H Plt Count 299 Neut % (Auto) 85.6 H Lymph % (Auto) 3.8 L [place] % (Auto) 10.0 Eos % (Auto) 0.1 L Baso % (Auto) 0.5 Neut # (Auto) 01829 H Lymph # (Auto) 500 L [place] # (Auto) 1400 H Eos # (Auto) 0 Baso # (Auto) 100 PT 15.5 H INR 1.3 APTT 32 D-Dimer ABG pH ABG pCO2 ABG pO2 ABG HCO3 ABG Total CO2 ABG O2 Saturation ABG Base Excess FiO2 Sodium 138 Potassium 4.1 Chloride 101 Carbon Dioxide 22 BUN 21 H Creatinine 0.85 Estimated GFR > 60 BUN/Creatinine Ratio 24.7 H Glucose 124 H Lactate Calcium 8.8 Magnesium 2.0 Total Creatine Kinase 210 H CK-MB (CK-2) 2.04 CK-MB (CK-2) Rel Index 1.0 L Troponin I < 0.012 NT-Pro-B Natriuret Pep 54 Lipase 67 Procalcitonin Chlamy pneumoniae PCR Adenovirus (PCR) B. pertussis DNA (PCR) B.parapertussis DNA PCR Coronavirus OC43 (PCR) Coronavirus HKU1 (PCR) Coronavirus 229E (PCR) SARS-CoV-2 (PCR) Coronavirus NL63 (PCR) Human Metapneumovir PCR Influenza Type A (PCR) Influenza Type B (PCR) M. pneumoniae (PCR) Parainfluenza 1 (PCR) Parainfluenza 2 (PCR) Parainfluenza 3 (PCR) Parainfluenza 4 (PCR) RSV (PCR) Entero/Rhino (PCR) 11/27/22 11/27/22 12:00 12:18 WBC RBC Hgb Hct MCV MCH MCHC RDW Plt Count Neut % (Auto) Lymph % (Auto) [place] % (Auto) Eos % (Auto) Baso % (Auto) Neut # (Auto) Lymph # (Auto) [place] # (Auto) Eos # (Auto) Baso # (Auto) PT INR APTT D-Dimer ABG pH 7.45 ABG pCO2 31.7 L ABG pO2 50 L ABG HCO3 22 ABG Total CO2 23 ABG O2 Saturation 87 L ABG Base Excess -2.0 FiO2 21 Sodium Potassium Chloride Carbon Dioxide BUN Creatinine Estimated GFR BUN/Creatinine Ratio Glucose Lactate 1.4 Calcium Magnesium Total Creatine Kinase CK-MB (CK-2) CK-MB (CK-2) Rel Index Troponin I NT-Pro-B Natriuret Pep Lipase Procalcitonin Chlamy pneumoniae PCR Adenovirus (PCR) B. pertussis DNA (PCR) B.parapertussis DNA PCR Coronavirus OC43 (PCR) Coronavirus HKU1 (PCR) Coronavirus 229E (PCR) SARS-CoV-2 (PCR) Coronavirus NL63 (PCR) Human Metapneumovir PCR Influenza Type A (PCR) Influenza Type B (PCR) M. pneumoniae (PCR) Parainfluenza 1 (PCR) Parainfluenza 2 (PCR) Parainfluenza 3 (PCR) Parainfluenza 4 (PCR) RSV (PCR) Entero/Rhino (PCR) Assessment & Plan Assessment & Plan narrative: 1. Community-acquired bacterial pneumonia with acute respiratory failure with hypoxia, possible PE and #2 below. - continue levaquin for presumed bacterial pneumonia given fever, leukocytosis and presentation. - d-dimer markedly elevated, continue lovenox 1mg / kg BID given history of contrast allergy for possible PE. Discussed extensively risks and benefits with patient and performed shared decision making. Will see if non-iodinated contrast is a possibility at this facility. Consider pre-treatment prior to CTA as well. For now will order surrogate DVT study and see how she responds to steroids and antibiotics. - continue solumedrol for COPD exacerbation - RT eval and treat - wean from O2 as tolerated, goal O2 89-96% while on supplemental therapy. - follow up blood and sputum cultures. 2. COPD with exacerbation - continue steroids as noted above - continue nebulizer therapies to replace home inhalers, continue home montelukast. - continue home BiPAP - RT eval and treat 3. Alpha 1 antitrypsin deficiency - receives weekly prolastin via port, follows with [facility]. 4. Hypothyroidism, chronic - continue home levothyroxine. 5. Obesity with BMI 35.0 Code: Full as discussed with the patient, surrogate decision maker is the patient's DVT: will be on therapeutic anticoagulation for now as discussed above. I have utilized all available immediate resources to obtain, update, or review the patient's current medications. COVID-19 COVID-19 status: Negative Time Spent With Patient Critical Care time: I spent a total of [] minutes of critical care time on this patient's care today; this time is exclusive of procedural time. Quality MIPS - Admit I confirm the patient?s Advance Care Plan is present, Code status is documented, Surrogate decision maker is in patient?s record [If Yes, STOP here]: Yes
[2022-11-27] MEDS: SODIUM CHLORIDE 0.9% 1,000 ML 100 ML IV (16:57)
[2022-11-27] MEDS: BUDESONIDE 0.5 MG/2 ML NEB INH (19:09)
[2022-11-27] MEDS: methylPREDNISolone 125 MG/2 ML VIAL 60 MG IV (20:38)
[2022-11-27] MEDS: MONTELUKAST 10 MG TABLET PO (20:38)
[2022-11-28] VITALS (10 sets, daily range): BP systolic 124–128; BP diastolic 50–60; PULSE 72–83; RESP 16–22; TEMP 35.9–36.6; O2SAT 89–95
[2022-11-28] MEDS: CODEINE/GUAIFENESIN LIQUID 5ML UDC 5 ML PO (05:29)
[2022-11-28] MEDS: ENOXAPARIN 100 MG/ML SYRINGE 95 MG SUBCUT (05:29)
[2022-11-28 05:33] LABS: Add Manual Diff / Slide Review NO; Basophils Absolute Auto 0 /uL (0-100); Basophils Percent Auto 0.2 % (0-2); Eosinophils Absolute Auto 0 /uL (0-450); Hemoglobin 13.4 g/dL (12.0-16.0); Lymphocytes Absolute Auto 600 /uL (1100-4500); Lymphocytes Percent Auto 6.4 % (25-40); Mean Corpuscular HGB Conc 33.4 % (30-36); Mean Corpuscular Hemoglobin 28.8 PG (26-34); Mean Corpuscular Volume 86.1 fL (80-100); Monocytes Absolute Auto 300 /uL (0-900); Monocytes Percent Auto 2.8 % (3-14); Neutrophils Absolute Auto 8700 /uL (1500-7000); Neutrophils Percent Auto 90.6 % (50-75); Platelet Count 267 X10^3/uL (150-400); Red Blood Cell Count 4.64 X10^6/uL (4.0-5.2); White Blood Cell Count 9.6 X10^3/uL (4.5-11.0)
[2022-11-28 06:02] LABS: BUN Creatinine Ratio 24.6 (6-22); Blood Urea Nitrogen 16 mg/dL (7-17); Calcium 8.5 mg/dL (8.4-10.2); Carbon Dioxide 22 mmol/L (22-32); Chloride 107 mmol/L (98-107); Estimated Glomerular Filt Rate > 60 mL/min (>60); Glucose 160 mg/dL (80-110); HEMOLYSIS < 15 (0-50); Magnesium 2.1 mg/dL (1.6-2.3); Potassium 4.3 mmol/L (3.4-5.1); Sodium 141 mmol/L (137-145)
[2022-11-28] MEDS: BUDESONIDE 0.5 MG/2 ML NEB INH ×2 (07:24→19:32)
[2022-11-28] MEDS: ALBUTEROL/IPRATROPIUM 3 ML AMPUL INH ×3 (07:24→19:32)
[2022-11-28] MEDS: LEVOTHYROXINE 50 MCG TABLET PO (07:53)
--- NOTE | 2022-11-28 08:00 | DI.US.S_ITS ---
PROCEDURE: US PERIPH VENOUS LOW EXTREM BI INDICATIONS: Please evaluate for DVT TECHNIQUE: Real-time imaging, as well as color and pulse Doppler interrogation, were performed of the deep veins of both legs from the inguinal ligament to the popliteal fossa. COMPARISON: None. FINDINGS: Right: The common femoral, femoral and popliteal veins are normally compressible, and free of intraluminal thrombus. Color and pulse Doppler demonstrate normal phasic intravascular flow. There is normal augmentation response to distal compression maneuver. Left: The common femoral, femoral and popliteal veins are normally compressible, and free of intraluminal thrombus. Color and pulse Doppler demonstrate normal phasic intravascular flow. There is normal augmentation response to distal compression maneuver. IMPRESSION: Negative for deep venous thrombosis. Dictated by: Valdez Levine M.D. on 11/28/2022 at 8:23 Approved by: Valdez Levine M.D. on 11/28/2022 at 8:24
[2022-11-28] MEDS: methylPREDNISolone 125 MG/2 ML VIAL 60 MG IV (08:04)
[2022-11-28] MEDS: BENZOCAINE/MENTHOL 1 LOZ PKT 1 EACH PO ×2 (09:35→11:08)
--- NOTE | 2022-11-28 10:59 | DI.CT.S_ITS ---
PROCEDURE: CT ANGIO CHEST PE PROTOCOL INDICATIONS: Please evaluate for PE TECHNIQUE: After the administration of intravenous contrast, 2 mm thick sections acquired from the pulmonary apices to the posterior costophrenic angles. 3-dimensional maximum intensity projection (MIP) coronal and sagittal reformats were then acquired through the thorax. For radiation dose reduction, the following was used: automated exposure control, adjustment of mA and/or kV according to patient size. This patient was pre-medicated prior to this contrast administration. No immediate contrast reactions were experienced. COMPARISON: [facility], US, US PERIPH VENOUS LOW EXTREM BI, 11/28/2022, 8:51. [facility], CR, XR CHEST 1V, 11/27/2022, 11:36. [facility], CT, CT ABDOMEN PELVIS WO CON, 11/05/2021, 13:42. FINDINGS: Image quality: Excellent. Pulmonary arteries: Pulmonary arteries are normal in size, and demonstrate no intraluminal filling defects to suggest central pulmonary embolism. Lungs and pleura: Patchy infiltrates can be seen at the lung bases, which is worst within the left lower lobe. No pleural effusions or pneumothorax. Central and peripheral airways are patent. Mediastinum: Heart size is normal, without pericardial effusion. No mediastinal or hilar adenopathy. Thoracic aorta is normal in caliber and enhancement. Esophagus is normal in caliber, without hiatal hernia. Bones and chest wall: No suspicious bony lesions. Ribs and thoracic spine appear intact throughout. Age-appropriate bony degenerative changes are seen. Accentuated thoracic kyphosis is seen. Thyroid gland is small in size. No axillary or supraclavicular adenopathy. A right-sided chest port is seen, with the tip within the inferior aspect of the superior vena cava. Abdomen: Cholecystectomy clips are seen. Visualized upper abdominal solid organs appear normal in the early arterial phase of enhancement. IMPRESSION: Negative for pulmonary embolism. Areas of consolidation can be seen in both lung bases, with enhancement. Atelectasis is suspected. Differential diagnosis includes infection. Neoplasm is considered to be much less likely. Please consider a follow-up noncontrast chest CT in 6-12 weeks to assure clearing. Additional findings: Right-sided chest port Cholecystectomy Dictated by: Valdez Levine M.D. on 11/28/2022 at 16:38 Approved by: Valdez Levine M.D. on 11/28/2022 at 16:41
[2022-11-28] MEDS: levoFLOXacin 750 MG/150 ML PIGGYBACK 100 MG IV (11:00)
[2022-11-28] MEDS: HYDROCORTISONE 100 MG/2 ML VIAL 200 MG IV (12:13)
--- NOTE | 2022-11-28 13:27 | P.PN_ITS ---
Subjective Subjective Date Patient Seen: 11/28/22 Interval history: 62 F admitted with pneumonia and COPD exacerbation. Possible PE, shared decision making performed and patient would like to attempt CTA to rule out PE with pre- treatment protocol. Improved slightly today to 1L via NC but continues to have significant cough, L sided rib pain with cough. Exam Vital Signs (past 8 hours): - 11/28/22 05:41 11/28/22 07:24 11/28/22 07:56 Temperature 96.7 F L Pulse Rate 75 72 72 Respiratory Rate 18 18 20 Blood Pressure 124/55 L Pulse Oximetry 89 L 94 Oxygen Delivery Method Nasal Cannula Oxygen Flow Rate 2 2 Fraction of Inspired Oxygen 28 11/28/22 07:00 11/28/22 11:00 11/28/22 13:13 Temperature 97.5 F L Pulse Rate 82 77 Respiratory Rate 22 18 Blood Pressure 128/50 L Pulse Oximetry 94 95 Oxygen Delivery Method Nasal Cannula Nasal Cannula Oxygen Flow Rate 2 1.5 Fraction of Inspired Oxygen 26 Fraction of Inspired Oxygen 26 SaO2/FiO2 Ratio 365 Oxygen Delivery Method Nasal Cannula Oxygen Flow Rate 1.5 Narrative Exam Narrative: General:? Patient is well developed and well nourished, in no distress at this time. Short of breath with prolonged sentences, occasional violent cough. HEENT:? Normocephalic, atraumatic, extraocular muscles intact, oral pharynx is clear and mucous membranes are moist. Neck: supple and symmetric, trachea is midline, no cervical adenopathy. Chest:? Normal AP diameter and contour without kyphoscoliosis, no tachypnea, equal chest rise bilaterally. Lungs:? bibasilar rales, minimal air movement bilaterally, upper lobes cta b/l. Cardio:?RRR no m/r/g. Abdomen: soft, non-distended Musculoskeletal:? Muscle strength and tone are equal within normal limits, no deformity. Extremities: No edema or joint effusions. No cyanosis or clubbing. Skin:? Pale,? Warm to touch,dry and intact without rashes, ulcerations or petechiae.? Neuro:? Alert and orientated x3,? sensation to touch intact in all extremities, no gross deficits noted of cranial nerves. Psych:? Patient has a well-kept appearance, appropriate affect, mental status attitude thought context and judgment are appropriate for age. Objective Labs Result Diagrams: 11/28/22 05:03 11/28/22 05:03 Labs: Laboratory Results - last 24 hr 11/28/22 11/28/22 05:03 05:03 WBC 9.6 RBC 4.64 Hgb 13.4 Hct 40.0 MCV 86.1 MCH 28.8 MCHC 33.4 RDW 15.0 H Plt Count 267 Neut % (Auto) 90.6 H Lymph % (Auto) 6.4 L [place] % (Auto) 2.8 L Eos % (Auto) 0.0 L Baso % (Auto) 0.2 Neut # (Auto) 8700 H Lymph # (Auto) 600 L [place] # (Auto) 300 Eos # (Auto) 0 Baso # (Auto) 0 Sodium 141 Potassium 4.3 Chloride 107 Carbon Dioxide 22 BUN 16 Creatinine 0.65 Estimated GFR > 60 BUN/Creatinine Ratio 24.6 H Glucose 160 H Calcium 8.5 Magnesium 2.1 PFSH Medical History (Updated 11/27/22 @ 16:29 by Bill Genao DO) [id number] deficiency COPD (chronic obstructive pulmonary disease) Surgical History (Updated 11/27/22 @ 16:29 by Bill Genao DO) H/O hernia repair History of cholecystectomy History of insertion of tunneled central venous catheter (CVC) with port Family History (Updated 11/27/22 @ 16:30 by Bill Genao DO) Mother Mexwj-7-etczwlmyhof deficiency Father Hcuti-0-hubxbwpbvlu deficiency Social History household members: spouse Smoking Status: Former smoker alcohol intake: current Assessment & Plan Assessment & Plan narrative: 1. Community-acquired bacterial pneumonia with acute respiratory failure with hypoxia, possible PE and #2 below. - continue levaquin for presumed bacterial pneumonia given fever, leukocytosis and presentation. - d-dimer markedly elevated, continue lovenox 1mg / kg BID given history of contrast allergy for possible PE. Discussed extensively risks and benefits with patient and performed shared decision making. Giving pre-treatment protocol with hydrocortisone and benadryl with CTA planned for this evening. - RT eval and treat - wean from O2 as tolerated, goal O2 89-96% while on supplemental therapy. - follow up blood and sputum cultures, currently without growth. 2. COPD with exacerbation - continue steroids as noted above - continue nebulizer therapies to replace home inhalers, continue home montelu kast. - continue home BiPAP - RT eval and treat 3. Alpha 1 antitrypsin deficiency - receives weekly prolastin via port, follows with [facility]. 4. Hypothyroidism, chronic - continue home levothyroxine. 5. Obesity with BMI 35.0 Code: Full as discussed with the patient, surrogate decision maker is the patient's DVT: will be on therapeutic anticoagulation for now as discussed above. I have utilized all available immediate resources to obtain, update, or review the patient's current medications. COVID-19 COVID-19 status: Negative Time Spent With Patient Critical Care time: I spent a total of [] minutes of critical care time on this patient's care today; this time is exclusive of procedural time. Quality VTE Deep Vein Thrombosis/Pulmonary Embolism Present on Admission: No
[2022-11-28] MEDS: SODIUM CHLORIDE 0.9% 1,000 ML 100 ML IV (14:25)
--- NOTE | 2022-11-28 14:29 | CM.DANOTE ---
Initial Discharge Planning Note: Case reviewed, met with patient. Introduced self and role. Payer: [facility] self pay PCP: Alicja Ryder 62 year old female with PMH of COPD, A1AT deficiency affecting lungs (receiving IV Prolastin weekly) presented to ED with SOB, fever, cough and diagnosed with bacterial pneumonia, respiratory failure and possible PE. She has agreed to a CTA per notes. She is alert/oriented, ambulatory and employed at [employer]. She has struggled with lung infections through the years due to her deficiency. She lives in [place] with her spouse Margie. Plan: When medically cleared, return home to care of spouse. PEÑA Discharge Planning/Care Management CM Discharge Assessment Start: 11/28/22 14:20 Freq: Status: Active Protocol: Document 11/28/22 14:21 (Rec: 11/28/22 14:29 [id number]) Discharge Planning Assessment Assigned Solar Panel Installer Lois Aguirre RN/DCP Advance Directives? Yes: STATES IS HERE ON FILE - NOT FOUND Advance Directives on File No History Provided By Patient,Medical Record Prior Living Arrangements House Household Members spouse Type of transporation used prior to Drives own vehicle admit Independent with ADL's Yes Is patient alert and oriented? Yes Comment Patient works for [employer] for [employer] No Barriers to Discharge No Discharge Plan Home Transportation Arrangement Due to patient's A1AT deficiency, she receives IV Prolastin weekly Referrals Initiated None needed Review Status In Process Next Review Type Continued Stay Review
[2022-11-28] MEDS: diphenhydrAMINE 50 MG/ML VIAL IV (16:04)
[2022-11-28] MEDS: HYDROCORTISONE 100 MG/2 ML VIAL IV (16:04)
[2022-11-28] MEDS: MONTELUKAST 10 MG TABLET PO (21:18)
[2022-11-28] MEDS: SODIUM CHLORIDE 0.9% FLUSH 10 ML IV (21:18)
[2022-11-29] VITALS (10 sets, daily range): BP systolic 116–135; BP diastolic 51–67; PULSE 69–93; RESP 17–24; TEMP 36.3–36.7; O2SAT 92–95
[2022-11-29] MEDS: ALBUTEROL/IPRATROPIUM 3 ML AMPUL INH ×4 (05:00→22:34)
[2022-11-29] MEDS: methylPREDNISolone 125 MG/2 ML VIAL 60 MG IV ×2 (05:19→18:20)
[2022-11-29 05:39] LABS: Add Manual Diff / Slide Review NO; Basophils Absolute Auto 0 /uL (0-100); Basophils Percent Auto 0.2 % (0-2); Eosinophils Absolute Auto 0 /uL (0-450); Hemoglobin 12.7 g/dL (12.0-16.0); Lymphocytes Absolute Auto 800 /uL (1100-4500); Mean Corpuscular HGB Conc 33.4 % (30-36); Mean Corpuscular Hemoglobin 28.8 PG (26-34); Mean Corpuscular Volume 86.3 fL (80-100); Monocytes Absolute Auto 900 /uL (0-900); Monocytes Percent Auto 7.7 % (3-14); Neutrophils Absolute Auto 10200 /uL (1500-7000); Neutrophils Percent Auto 85.1 % (50-75); Platelet Count 342 X10^3/uL (150-400); Red Blood Cell Count 4.41 X10^6/uL (4.0-5.2); Red Cell Distribution Width 15.1 % (11.6-14.8)
[2022-11-29 06:08] LABS: BUN Creatinine Ratio 22.7 (6-22); Blood Urea Nitrogen 17 mg/dL (7-17); Calcium 8.8 mg/dL (8.4-10.2); Carbon Dioxide 22 mmol/L (22-32); Chloride 106 mmol/L (98-107); Estimated Glomerular Filt Rate > 60 mL/min (>60); Glucose 121 mg/dL (80-110); HEMOLYSIS < 15 (0-50); Magnesium 2.1 mg/dL (1.6-2.3); Sodium 141 mmol/L (137-145)
[2022-11-29] MEDS: LEVOTHYROXINE 50 MCG TABLET PO (06:20)
[2022-11-29] MEDS: BUDESONIDE 0.5 MG/2 ML NEB INH ×2 (07:39→19:19)
[2022-11-29] MEDS: MAGNESIUM SULFATE 2 GM/50 ML PIGGYBACK IV (10:12)
[2022-11-29] MEDS: SODIUM CHLORIDE 0.9% FLUSH 10 ML IV ×2 (10:12→21:21)
[2022-11-29] MEDS: levoFLOXacin 750 MG/150 ML PIGGYBACK 100 MG IV (12:15)
--- NOTE | 2022-11-29 13:44 | CM.DPC ---
DCP Cont: Per MD, pt now off oxygen but still SOB and not yet medically stable to d/c but possibly tomorrow pending her progress and no anticipated barriers or needs for discharge. Plan: SW to follow for plan of d/c to home via spouse POV and any further identified discharge planning needs. KELVIN Enriquez
--- NOTE | 2022-11-29 15:00 | PM.PN.1 ---
Subjective Subjective Date Patient Seen: 11/29/22 Interval history: 62 F admitted with pneumonia and COPD exacerbation. Patient did well with CT with pre-treatment for contrast allergy, study was negative for PE. Off of O2 today, but remains significantly weak, dyspnic, and continues to have horrific coughing fits. Exam Vital Signs (past 8 hours): - 11/29/22 07:40 11/29/22 07:59 11/29/22 08:00 Temperature 98.0 F Pulse Rate 69 75 Respiratory Rate 18 17 Blood Pressure 129/67 Pulse Oximetry 92 93 Oxygen Delivery Method Room Air Room Air Oxygen Flow Rate 0 0 Fraction of Inspired Oxygen 21 11/29/22 12:00 Temperature 97.7 F Pulse Rate 83 Respiratory Rate 17 Blood Pressure 135/64 Pulse Oximetry 93 Oxygen Delivery Method Oxygen Flow Rate 0 Fraction of Inspired Oxygen Fraction of Inspired Oxygen 21 SaO2/FiO2 Ratio 438 Oxygen Delivery Method Room Air Oxygen Flow Rate 0 Narrative Exam Narrative: General:? Patient is well developed and well nourished, in no distress at this time. Short of breath with prolonged sentences, occasional violent cough. HEENT:? Normocephalic, atraumatic, extraocular muscles intact, oral pharynx is clear and mucous membranes are moist. Neck: supple and symmetric, trachea is midline, no cervical adenopathy. Chest:? Normal AP diameter and contour without kyphoscoliosis, no tachypnea, equal chest rise bilaterally. Lungs:? bibasilar rales, minimal air movement bilaterally, upper lobes cta b/l. Cardio:?RRR no m/r/g. Abdomen: soft, non-distended Musculoskeletal:? Muscle strength and tone are equal within normal limits, no deformity. Extremities: No edema or joint effusions. No cyanosis or clubbing. Skin:? Pale,? Warm to touch,dry and intact without rashes, ulcerations or petechiae.? Neuro:? Alert and orientated x3,? sensation to touch intact in all extremities, no gross deficits noted of cranial nerves. Psych:? Patient has a well-kept appearance, appropriate affect, mental status attitude thought context and judgment are appropriate for age. Objective Labs Result Diagrams: 11/29/22 04:41 11/29/22 04:41 Labs: Laboratory Results - last 24 hr 11/29/22 11/29/22 04:41 04:41 WBC 12.0 H RBC 4.41 Hgb 12.7 Hct 38.0 MCV 86.3 MCH 28.8 MCHC 33.4 RDW 15.1 H Plt Count 342 Neut % (Auto) 85.1 H Lymph % (Auto) 7.0 L [place] % (Auto) 7.7 Eos % (Auto) 0.0 L Baso % (Auto) 0.2 Neut # (Auto) 83491 H Lymph # (Auto) 800 L [place] # (Auto) 900 Eos # (Auto) 0 Baso # (Auto) 0 Sodium 141 Potassium 4.0 Chloride 106 Carbon Dioxide 22 BUN 17 Creatinine 0.75 Estimated GFR > 60 BUN/Creatinine Ratio 22.7 H Glucose 121 H Calcium 8.8 Magnesium 2.1 PFSH Medical History (Updated 11/27/22 @ 16:29 by Bill Genao DO) Hogjv-[id number] deficiency COPD (chronic obstructive pulmonary disease) Surgical History (Updated 11/27/22 @ 16:29 by Bill Genao DO) H/O hernia repair History of cholecystectomy History of insertion of tunneled central venous catheter (CVC) with port Family History (Updated 11/27/22 @ 16:30 by Bill Genao DO) Mother Mcjcl-4-zhlnqcybsia deficiency Father Aetyj-3-qqfpbjoijmf deficiency Social History household members: spouse Smoking Status: Former smoker alcohol intake: current Assessment & Plan Assessment & Plan narrative: 1. Community-acquired bacterial pneumonia with acute respiratory failure with hypoxia, possible PE and #2 below. - continue levaquin for presumed bacterial pneumonia given fever, leukocytosis and presentation. CTA shows possible bilateral infiltrates, difficult to tell given underlying chronic lung disease. - d-dimer markedly elevated, continued lovenox 1mg / kg BID given history of contrast allergy for possible PE. CTA ultimately negative and lovenox was discontinued on 11/28. - RT eval and treat appreciated. - now off supplemental O2 today. - follow up blood and sputum cultures, currently without growth. - continue methylprednisolone 60 q12. Yesterday received hydrocortisone 200 mg x2 and benadryl for pre-treatment prior to CTA. Resume methylprednisolone today. - if no significant improvement check TTE. ordered proBNP for tomorrow AM. May have mild R heart failure or pulmonary HTN from her underlying lung disease. 2. COPD with exacerbation - continue steroids as noted above - continue nebulizer therapies to replace home inhalers, continue home montelukast. - continue home BiPAP - RT eval and treat - codeine cough syrup PRN 3. Alpha 1 antitrypsin deficiency - receives weekly prolastin via port, follows with [facility]. 4. Hypothyroidism, chronic - continue home levothyroxine. 5. Obesity with BMI 35.0 Code: Full as discussed with the patient, surrogate decision maker is the patient's DVT: Lovenox daily Dispo: inpatient, anticipate discharge home in the next 1-2 days, though she is a bit slow to recover from her pneumonia likely due to underlying A1AT and COPD. I have utilized all available immediate resources to obtain, update, or review the patient's current medications. COVID-19 COVID-19 status: Negative Time Spent With Patient Critical Care time: I spent a total of [] minutes of critical care time on this patient's care today; this time is exclusive of procedural time. Quality VTE Deep Vein Thrombosis/Pulmonary Embolism Present on Admission: No
[2022-11-29] MEDS: MONTELUKAST 10 MG TABLET PO (21:21)
[2022-11-30] VITALS: BP 113/68; PULSE 77; RESP 18; TEMP 36.2; O2SAT 93
[2022-11-30] MEDS: cefTRIAXone 2,000 MG in SODIUM CHLORIDE 0.9% 100 ML 200 MG IV (00:46)
[2022-11-30 06:30] LABS: Hematocrit 38.5 % (36-46); Hemoglobin 12.8 g/dL (12.0-16.0); Mean Corpuscular HGB Conc 33.2 % (30-36); Mean Corpuscular Hemoglobin 28.5 PG (26-34); Mean Corpuscular Volume 85.9 fL (80-100); Platelet Count 333 X10^3/uL (150-400); Red Blood Cell Count 4.48 X10^6/uL (4.0-5.2); Red Cell Distribution Width 15.1 % (11.6-14.8); White Blood Cell Count 9.5 X10^3/uL (4.5-11.0)
[2022-11-30 06:32] LABS: Add Manual Diff / Slide Review YES
[2022-11-30 06:34] LABS: BUN Creatinine Ratio 25.3 (6-22); Blood Urea Nitrogen 19 mg/dL (7-17); Calcium 8.4 mg/dL (8.4-10.2); Carbon Dioxide 21 mmol/L (22-32); Chloride 107 mmol/L (98-107); Estimated Glomerular Filt Rate > 60 mL/min (>60); Glucose 130 mg/dL (80-110); HEMOLYSIS < 15 (0-50); Magnesium 2.3 mg/dL (1.6-2.3); Potassium 4.6 mmol/L (3.4-5.1); Sodium 141 mmol/L (137-145)
[2022-11-30 06:39] LABS: NT-proBNP (BNP-Adult 18+) 473 pg/mL (<125)
[2022-11-30] MEDS: LEVOTHYROXINE 50 MCG TABLET PO (06:46)
[2022-11-30] MEDS: SODIUM CHLORIDE 0.9% FLUSH 10 ML IV (06:46)
[2022-11-30] MEDS: methylPREDNISolone 125 MG/2 ML VIAL 60 MG IV (06:46)
[2022-11-30 07:33] VITALS: PULSE 70; RESP 16; O2SAT 94
[2022-11-30] MEDS: BUDESONIDE 0.5 MG/2 ML NEB INH (07:33)
[2022-11-30] MEDS: ALBUTEROL/IPRATROPIUM 3 ML AMPUL INH ×2 (07:33→11:25)
[2022-11-30 07:44] LABS: Neutrophils Absolute Manual 7885 /uL (3000-5900); Rouleaux 2+; Total Cells Counted 100
[2022-11-30 08:00] VITALS: BP 128/58; PULSE 75; RESP 17; TEMP 36.7; O2SAT 94
--- NOTE | 2022-11-30 08:36 | PM.DS.1 ---
History of Present Illness History of Present Illness Date Patient Seen: 11/30/22 Time Patient Seen: 08:36 Chief complaint: SOB, possible lung infection Narrative: This is a 62 year old female, with PMH of COPD, A1AT, YULI who presents with shortness of breath, fever, and cough for the past 5 days. Patient states that she began feeling generally ill 5 days ago, then quickly developed severe lethargy and high fevers to as high as 103 F at home. She developed cough, productive with yellow sputum. She continued to take her home nebulizers and treatments, but did not start any steroids or antitbiotics at home. She follows with pulmonology for her COPD and A1AT deficiency. She felt better a couple of days ago, but remained febrile and the last two days she worsened again then developing some left scapular pain with deep breaths, and worsening dyspnea on exertion. She denies abdominal pain, dysuria, urinary frequency, diarrhea or constipation. Further history obtained from discussion with the ER provider. She reports severe facial swelling with iodinated contrast, but does okay with non-iodinated contrast in the past. CXR showed bibasilar opacities, new since her prior imaging study. She was hypoxic on room air to 84, improved with a couple L of supplemental oxygen. Laboratory evaluation revealed a leukocytosis with WBC of 14.4, an elevated D-dimer of 1567, and an unremarkable chemistry panel. Procalcitonin was elevated at 0.55. Respiratory panel was negative. Patient was given levofloxacin given prior cephalosporin allergy, Solu-Medrol, and therapeutic doses of Lovenox given the elevated D-dimer and inability to perform CT angiogram at this time given her severe contrast allergy. She was admitted for further management of acute hypoxic respiratory failure in the setting of community-acquired bacterial pneumonia. PMH: COPD, alpha 1 antitrypsin deficiency, YULI PSH:? Cholecystectomy, hernia repair (x2), Port-A-Cath insertion, pilonidal cyst resection, corneal transplant, hydradenitis surgery FHx:? Mother and father both have alpha 1 antitrypsin deficiency, grandmother () heart disease. SHx:? . Lives at home with her partner.? Employed with [employer].? Reports a 20 pack year history of tobacco use, quit 30 years ago.? Denies alcohol and recreational drug use. Discharge Providers Provider Date of admission: 11/27/22 13:23 Discharge Date: 11/30/22 Primary care physician: Alicja Ryder MD Discharge provider: Bill Genao DO Summary Hospital Course Discharge Diagnosis: 1. Community-acquired bacterial pneumonia with acute respiratory failure with hypoxia, possible PE and #2 below. 2. COPD with exacerbation 3. Alpha 1 antitrypsin deficiency 4. Hypothyroidism, chronic 5. Obesity with BMI 35.0 Hospital Course: This is a 62-year-old female with a past medical history of alpha 1 antitrypsin deficiency, COPD, hypothyroidism, and obesity, YULI who was admitted to the hospital with bacterial pneumonia and acute respiratory failure with hypoxia. Patient was started on levofloxacin for presumed community-acquired bacterial pneumonia, sputum cultures ultimately grew Haemophilus influenzae. She was initially started on therapeutic Lovenox over concern for possible PE with a markedly elevated D-dimer on admission. She was also started on high-dose methylprednisolone. She underwent pretreatment protocol to obtain CT angiogram of her chest history of contrast allergy, which was ultimately negative for PE. Had slow improvement in her hypoxia and dyspneic symptoms, but on the day of discharge she was well-appearing and though she continued to have significant cough was no longer requiring supplemental oxygen and had markedly improved symptoms. She was discharged home on a Medrol Dosepak to complete steroid course for her COPD exacerbation. She was also discharged with 6 additional days of levofloxacin to complete a 10 day course in total given her underlying significant lung disease. ProBNP was checked on the day of discharge over concern for possible cardiac etiology, and though this was elevated 473, her symptoms had markedly improved and no echocardiogram was deemed necessary. Was also provided a prophylactic antifungal on discharge for possible vaginal yeast while on antibiotic therapy. No other changes were made to her home medications. I recommend follow-up with the patient's primary care provider and ornament setter as previously scheduled. Time Spent with Patient Time spent: Greater than 30 minutes Exam Vital Signs (past 8 hours): - 11/30/22 07:33 Pulse Rate 70 Respiratory Rate 16 Pulse Oximetry 94 Oxygen Delivery Method Room Air Oxygen Flow Rate 0 Fraction of Inspired Oxygen 21 Fraction of Inspired Oxygen 21 SaO2/FiO2 Ratio 447 Oxygen Delivery Method Room Air Oxygen Flow Rate 0 Narrative Exam Narrative: General:? Patient is well developed and well nourished, in no distress at this time. improved dyspnea and minimal cough HEENT:? Normocephalic, atraumatic, extraocular muscles intact, oral pharynx is clear and mucous membranes are moist. Neck: supple and symmetric, trachea is midline, no cervical adenopathy. Chest:? Normal AP diameter and contour without kyphoscoliosis, no tachypnea, equal chest rise bilaterally. Lungs:? bibasilar rales, minimal air movement bilaterally, upper lobes cta b/l. Cardio:?RRR no m/r/g. Abdomen: soft, non-distended Musculoskeletal:? Muscle strength and tone are equal within normal limits, no deformity. Extremities: No edema or joint effusions. No cyanosis or clubbing. Skin:? Pale,? Warm to touch,dry and intact without rashes, ulcerations or petechiae.? Neuro:? Alert and orientated x3,? sensation to touch intact in all extremities, no gross deficits noted of cranial nerves. Psych:? Patient has a well-kept appearance, appropriate affect, mental status attitude thought context and judgment are appropriate for age. Objective Labs Result Diagrams: 11/30/22 05:02 11/30/22 05:02 Labs: Laboratory Results - last 24 hr 11/30/22 11/30/22 11/30/22 05:02 05:02 05:02 WBC 9.5 RBC 4.48 Hgb 12.8 Hct 38.5 MCV 85.9 MCH 28.5 MCHC 33.2 RDW 15.1 H Plt Count 333 Neut % (Auto) Not Reportable Lymph % (Auto) Not Reportable [place] % (Auto) Not Reportable Eos % (Auto) Not Reportable Baso % (Auto) Not Reportable Lymph # (Auto) Not Reportable [place] # (Auto) Not Reportable Baso # (Auto) Not Reportable Total Counted 100 Seg Neutrophils % 83.0 H Lymphocytes % (Manual) 8.0 L Atypical Lymphs % 2.0 H Monocytes % (Manual) 7.0 Neutrophils # (Manual) 7885 H RBC Morphology Not Reportable [place]le[place] 2+ H Sodium 141 Potassium 4.6 Chloride 107 Carbon Dioxide 21 L BUN 19 H Creatinine 0.75 Estimated GFR > 60 BUN/Creatinine Ratio 25.3 H Glucose 130 H Calcium 8.4 Magnesium 2.3 NT-Pro-B Natriuret Pep 473 H [facility] Medical History (Updated 11/27/22 @ 16:29 by Bill Genao DO) Kmlpv-3-skzhpvfgqdx deficiency COPD (chronic obstructive pulmonary disease) Surgical History (Updated 11/27/22 @ 16:29 by Bill Genao DO) H/O hernia repair History of cholecystectomy History of insertion of tunneled central venous catheter (CVC) with port Family History (Updated 11/27/22 @ 16:30 by Bill Genao DO) Mother Scwhx-1-ngfekpqvddn deficiency Father Gtaur-7-dhnquwrffbi deficiency Social History household members: spouse Smoking Status: Former smoker alcohol intake: current Discharge Plan Discharge Plan Patient Disposition: Home Provider Discharge Comment: You were admitted to the hospital with pnuemonia and COPD exacerbation. You improved with antiboitics and steroids. CT scan negative for PE. Sputum cultures were positive for Haemophilus Influenzae, which was treated with Levaquin. Continue antibiotics to complete 10 day course given severity of illness on presentation. 2 medrol dose packs were prescribed, take one now and another in case of symptoms on your vacation. Fluconazole prescribed for prophylaxis while taking antibiotics, take 1 tablet if symptoms develop, then another in 3-4 days if symptoms persist. Discharge orders & Medications Prescriptions: New levofloxacin 750 mg tablet 750 mg PO 1100 6 Days Qty: 6 0RF fluconazole 150 mg tablet 150 mg PO Q3D Qty: 2 0RF Rx Instructions: may repeat second dose 72 hrs after first dose if symptoms persist methylprednisolone [Medrol (Zenon)] 4 mg tablets,dose pack 4 mg PO DAILY Qty: 42 0RF Rx Instructions: Please provide 2 dose packs, patient to take 1 dose pack now and another for repeat symptoms if they arise Continued ipratropium-albuterol 0.5 mg-3 mg(2.5 mg base)/3 mL Solution For Nebulization 1 neb Inhalation QID Rx Instructions: may increase frequency as needed Prolastin-C 1,000 mg Recon Soln 60 mg/kg IV QWEEK fluticasone propion-salmeterol 250-50 mcg/dose blister with device 1 inh INHALATION BID levothyroxine 50 mcg tablet 50 mcg PO DAILY montelukast 10 mg tablet 10 mg PO DAILY (DME) Respironics BIPAP System One 60 Qty: 1 Dose Instruction: As directed Label Comments: RESPIRONICS AVS: MAX PRESSURE: 14 EPAP Min: 4 EPAP Max: 8 PS Min: 4 PS Max: 10 DME: [facility] Rx Instructions: As directed Follow up/Referrals: Alicja Ryder MD [Primary Care Provider] - Diet/Activity/Treatments Diet: Diet as Tolerated Activity: As tolerated Visit Report/Discharge Packet Instructions: Fluconazole Stand Alone Forms: Patient Portal/API, Stroke Signs & Symptoms Discharge Data Primary Care Provider: Alicja Ryder Quality VTE Deep Vein Thrombosis/Pulmonary Embolism Present on Admission: No
--- NOTE | 2022-11-30 11:15 | PC.NURSE ---
Per Dr. Genao - Pt may keep Port a cath accessed for infusion today.
[2022-11-30 11:26] VITALS: PULSE 93; RESP 18; O2SAT 93
[2022-11-30] MEDS: levoFLOXacin 250 MG TABLET 750 MG PO (11:40)
[2022-11-30 12:00] VITALS: BP 129/52; PULSE 81; RESP 17; TEMP 36.3; O2SAT 93
--- NOTE | 2022-11-30 13:42 | PC.NURSE ---
Pt is dressed and ready for discharge home with Spouse. Port a cath to stay accessed for at home infusion later today. D/C instructions reviewed with Pt, including stroke education, new meds, and follow up. Pt denies further questions and will be taken out via w/c by [employer] CLERK to POV with Spouse and all belongings.
== END 2022-11-30 13:49 | disposition home or self-care (01) | DRG 193 ==
LOC: ED 11:18 → AC 13:25
PROVIDERS: Admitting Provider Internal Medicine; Emergency Provider Emergency Medicine; PCP Internal Medicine; Referring Provider Emergency Medicine; Visit Provider Internal Medicine
DX: J15.9 Unspecified bacterial pneumonia (principal); J96.01 Acute respiratory failure with hypoxia; J44.1 Chronic obstructive pulmonary disease with (acute) exacerbation; J44.9 Chronic obstructive pulmonary disease, unspecified; E88.01 Alpha-1-antitrypsin deficiency; E03.9 Hypothyroidism, unspecified; Z87.891 Personal history of nicotine dependence; Z20.822 Contact with and (suspected) exposure to COVID-19
CPT/HCPCS: 36415; 36600; 71045; 71275; 80048; 82550; 82553; 82805; 83605; 83690; 83735; 83880; 84145; 84484; 85007; 85025; 85379; 85610; 85730; 87040; 87070; 87185; 87205; 87633; 93005; 93970; 94640; 94760; 96365; 96366; 96372; 96375; 99285; J0696; J1200; J1642; J1650; J1720; J1956; J2930; J3475; J7613; Q9967

== ENCOUNTER 2023-03-03 10:24 | Emergency (ER) | payer OTHER, SELFPAY ==
[2022-11-27 16:36] VITALS: BMI 34.9
[2023-03-03 10:36] VITALS: O2SAT 93
--- NOTE | 2023-03-03 10:36 | PC.NURSE ---
Once pt at rest O2 increased to 93% RA. Pt does not appear in any resp distress
[2023-03-03 10:42] VITALS: PULSE 78; RESP 20; O2SAT 93
[2023-03-03] MEDS: ALBUTEROL/IPRATROPIUM 3 ML AMPUL INH (10:42)
[2023-03-03 10:43] VITALS: BP 161/95; PULSE 94; RESP 16; TEMP 36.9; O2SAT 89; BMI 35.7
--- NOTE | 2023-03-03 10:50 | DI.RAD.S_ITS ---
PROCEDURE: XR CHEST 1V INDICATIONS: Shortness of breath TECHNIQUE: One view of the chest was acquired. COMPARISON: [facility], CR, XR CHEST 1V, 11/27/2022, 11:36. FINDINGS: Surgical changes and devices: Right chest wall port Lungs and pleura: Lungs are clear. No pleural effusions or pneumothorax. Mediastinum: Mediastinal contours appear normal. Heart size is normal. Bones and chest wall: No suspicious bony lesions. Overlying soft tissues appear unremarkable. IMPRESSION: No acute cardiopulmonary abnormality. Dictated by: Albert Gutierres M.D. on 03/03/2023 at 11:15 Approved by: Albert Gutierres M.D. on 03/03/2023 at 11:15
--- NOTE | 2023-03-03 10:53 | RT ---
pt aden neb tx well, no distress noted and pt on room air
[2023-03-03 11:28] LABS: Add Manual Diff / Slide Review NO; Basophils Absolute Auto 100 /uL (0-100); Basophils Percent Auto 1.5 % (0-2); Eosinophils Absolute Auto 200 /uL (0-450); Eosinophils Percent Auto 3.1 % (2-4); Hematocrit 41.5 % (36-46); Lymphocytes Absolute Auto 1000 /uL (1100-4500); Lymphocytes Percent Auto 18.2 % (25-40); Mean Corpuscular HGB Conc 33.7 % (30-36); Mean Corpuscular Hemoglobin 29.1 PG (26-34); Mean Corpuscular Volume 86.5 fL (80-100); Monocytes Absolute Auto 600 /uL (0-900); Monocytes Percent Auto 10.1 % (3-14); Neutrophils Absolute Auto 3800 /uL (1500-7000); Neutrophils Percent Auto 67.1 % (50-75); Platelet Count 289 X10^3/uL (150-400); Red Cell Distribution Width 15.4 % (11.6-14.8); White Blood Cell Count 5.6 X10^3/uL (4.5-11.0)
[2023-03-03 11:33] LABS: INR 1.1 (0.9-1.3); Prothrombin Time 12.1 SECONDS (10.1-12.7)
[2023-03-03 11:41] LABS: Alanine Aminotransferase 40 IU/L (<35); Albumin 4.4 g/dL (3.5-5.0); Albumin Globulin Ratio 1.3 (1.0-2.8); Alkaline Phosphatase 83 U/L (38-126); Aspartate Aminotransferase 43 IU/L (14-36); BUN Creatinine Ratio 20.3 (6-22); Bilirubin Total 0.5 mg/dL (0.2-1.3); Blood Urea Nitrogen 15 mg/dL (7-17); Calcium 9.2 mg/dL (8.4-10.2); Carbon Dioxide 24 mmol/L (22-32); Chloride 105 mmol/L (98-107); Estimated Glomerular Filt Rate > 60 mL/min (>60); Globulin 3.5 g/dL (1.7-4.1); Glucose 101 mg/dL (80-110); HEMOLYSIS 24 (0-50); Potassium 4.5 mmol/L (3.4-5.1); Sodium 138 mmol/L (137-145); Total Protein 7.9 g/dL (6.3-8.2)
[2023-03-03 11:42] LABS: Lactate (Lactic Acid) 0.9 mmol/L (0.7-2.1)
[2023-03-03 11:53] LABS: NT-proBNP (BNP-Adult 18+) < 11 pg/mL (<125); Troponin I < 0.012 ng/mL (0.01-0.034)
[2023-03-03 12:19] LABS: Adenovirus Not Detected (Not Detect); Coronavirus 229E Not Detected (Not Detect); Coronavirus HKU1 Not Detected (Not Detect); Coronavirus NL 63 Not Detected (Not Detect); Coronavirus OC43 Not Detected (Not Detect); Human Metapneumovirus Detected (Not Detect); Human Rhinovirus/Enterovirus Not Detected (Not Detect); Influenza A Not Detected (Not Detect); Influenza B Not Detected (Not Detect); Parainfluenza Virus 1 Not Detected (Not Detect); Parainfluenza Virus 2 Not Detected (Not Detect); Parainfluenza Virus 3 Not Detected (Not Detect); Parainfluenza Virus 4 Not Detected (Not Detect); Respiratory Syncytial Virus Not Detected (Not Detect); SARS- CoV-2 Not Detected (Not Detecte)
[2023-03-03 12:20] LABS: B. parapertussis Not Detected (Not Detecte); Bordetella pertussis Not Detected (Not Detecte); Chlamydophila pneumoniae Not Detected (Not Detect); Mycoplasma pneumoniae Not Detected (Not Detect)
--- NOTE | 2023-03-03 12:29 | ED_ITS ---
HPI - SOB/Dyspnea <David North PA-C - Last Filed: 03/03/23 18:02> General Chief Complaint: Shortness of Breath/Dyspnea Stated Complaint: Sent by MARKOS, joana ROLDAN. bronchitis Time Seen by Provider: 03/03/23 12:18 History of Present Illness HPI Narrative: This is a 62-year-old female presents to the emergency department due to worsening shortness of breath over the last couple of days. She states she is developed a productive cough and called her advertising rep's office and they sent her here as they want to check that she is not have pneumonia. She states that this has happened to her in the past. Patient reports some mild shortness of breath with activity but denies any chest pain, fevers, nausea, vomiting, or any other concerning signs or symptoms other than the productive cough. Related Data Home Medications Medication Instructions Recorded Confirmed alpha-1 proteinase inhib.(hum) 60 mg/kg IV QWEEK 12/21/18 11/27/22 1,000 mg intravenous solution (Prolastin-C) ipratropium 0.5 mg-albuterol 3 mg 1 neb inhalation QID 12/21/18 11/27/22 (2.5 mg base)/3 mL nebulization soln fluticasone 250 mcg-salmeterol 50 1 inh inhalation BID 01/10/20 11/27/22 mcg/dose blistr powdr for inhalation levothyroxine 50 mcg tablet 50 mcg PO DAILY 01/10/20 11/27/22 montelukast 10 mg tablet 10 mg PO DAILY 01/10/20 11/27/22 Respironics BIPAP System One 60 #1 ea 08/24/21 11/27/22 Previous Rx's Medication Instructions Recorded fluconazole 150 mg tablet 150 mg PO Q3D 2 doses #2 tabs 11/30/22 methylprednisolone 4 mg tablets in 4 mg PO DAILY #42 ea 11/30/22 a dose pack (Medrol (Zenon)) methylprednisolone 4 mg tablets in 4 mg PO DAILY #21 ea 03/03/23 a dose pack (Medrol (Zenon)) Allergies Allergy/AdvReac Type Severity Reaction Status Date / Time cephalexin [CEPHALEXIN] Allergy Severe NAUSEA/VOMI Verified 11/27/22 11:20 TING Iodinated Contrast Media Allergy Severe SWELLING/FAST Verified 11/27/22 11:20 [IODINATED CONTRAST MEDIA - HEART RATE IV DYE] povidone-iodine Allergy Severe facial, Verified 11/27/22 11:20 [From BETADINE] truck swelling soap [From BETADINE] Allergy Severe facial, Verified 11/27/22 11:20 truck swelling Review of Systems <David North PA-C - Last Filed: 03/03/23 18:02> Review of Systems Narrative: GENERAL: Denies chills, fatigue, malaise, fever, sweats. HEENT: Denies sinus pain, ear pain, sore throat, difficulty swallowing, dizziness. RESPIRATORY: Reports shortness of breath, reports cough, denies wheezing, hemoptysis, sputum. CARDIOVASCULAR: Denies chest pain, palpitations, orthopnea, edema, GASTROINTESTINAL: Denies nausea, vomiting, abdominal pain, diarrhea, constipation, melena. : Denies dysuria, frequency, incontinence, hematuria, urinary retention. MUSCULOSKELETAL: denies weakness, joint pain, or bony pain SKIN: Denies rash, skin lesions, or other NEUROLOGIC: Denies weakness, headache, numbness, change in speech, confusion, seizures, incoordination. PSYCHIATRIC: No concerning psychosocial issues. 12 point review of systems is negative except for those stated above Patient History <David North PA-C - Last Filed: 03/03/23 18:02> Medical History (Updated 03/03/23 @ 12:53 by David North PA-C) Tseiq-1-oqnimjfokmo deficiency COPD (chronic obstructive pulmonary disease) Surgical History (Updated 11/27/22 @ 16:29 by Bill Genao DO) H/O hernia repair History of cholecystectomy History of insertion of tunneled central venous catheter (CVC) with port Family History (Updated 11/27/22 @ 16:30 by Bill Genao DO) Mother [id number] deficiency Father Cvbzw-0-zecdhxscxby deficiency Social History household members: spouse Smoking Status: Former smoker alcohol intake: current Smoking Status: Former smoker alcohol intake frequency: holidays/special occasions only Substance Use Type: does not use Exam <David North PA-C - Last Filed: 03/03/23 18:02> Narrative Exam Narrative: GENERAL: Well-developed patient, in mild distress. HEAD: Atraumatic. Normocephalic. EYES: Pupils equal round and reactive. Extraocular motions intact. No scleral icterus. No injection or drainage. ENT: Nose without bleeding, purulent drainage. Throat without erythema, tonsilla r hypertrophy or exudate. Airway patent. NECK: Trachea midline. Non tender CARDIOVASCULAR: Regular rate and rhythm without murmurs, gallops, or rubs. RESPIRATORY: Clear to auscultation. Breath sounds equal bilaterally. No wheezes, rales, or rhonchi. GASTROINTESTINAL: Abdomen soft, non-tender, nondistended. EXTREMITIES: No edema or joint tenderness. BACK: Nontender without deformity or crepitance. No flank tenderness. NEURO: AOx3. SKIN: No rash or erythema of visible areas Initial Vital Signs Initial Vital Signs: Vital Signs Pulse Oximetry 93 03/03/23 10:36 Oxygen Delivery Method Room Air 03/03/23 10:36 <Juliana Gimenez DO - Last Filed: 03/03/23 20:00> Initial Vital Signs Initial Vital Signs: Vital Signs Pulse Oximetry 93 03/03/23 10:36 Oxygen Delivery Method Room Air 03/03/23 10:36 Course <David North PA-C - Last Filed: 03/03/23 18:02> Orders Ordered: ED Orders 03/03/23 11:15 Complete Blood Count AUTO DIFF Stat Comprehensive Metabolic Panel Stat Lactate (Lactic Acid) Stat NT-proBNP (BNP-Adult 18+) Stat Prothrombin Time INR Stat Troponin I Stat 03/03/23 11:20 Respiratory Panel (Film Array) Stat Discontinued Medications Albuterol/Ipratropium (Albuterol/Ipratropium 3 Ml Ampul) 3 ml INH NOW ONE Stop: 03/03/23 10:39 Last Admin: 03/03/23 10:42 Dose: 3 ml Documented By: NL Vital Signs Vital signs: Vital Signs - 8 hr 03/03/23 12:58 Pulse Rate 71 Blood Pressure 136/71 Pulse Oximetry 93 Oxygen Delivery Method Room Air <Juliana Gimenez DO - Last Filed: 03/03/23 20:00> Orders Ordered: ED Orders 03/03/23 11:15 Complete Blood Count AUTO DIFF Stat Comprehensive Metabolic Panel Stat Lactate (Lactic Acid) Stat NT-proBNP (BNP-Adult 18+) Stat Prothrombin Time INR Stat Troponin I Stat 03/03/23 11:20 Respiratory Panel (Film Array) Stat Discontinued Medications Albuterol/Ipratropium (Albuterol/Ipratropium 3 Ml Ampul) 3 ml INH NOW ONE Stop: 03/03/23 10:39 Last Admin: 03/03/23 10:42 Dose: 3 ml Documented By: JOVANY Vital Signs Vital signs: Vital Signs - 8 hr 03/03/23 12:58 Pulse Rate 71 Blood Pressure 136/71 Pulse Oximetry 93 Oxygen Delivery Method Room Air MDM - SOB/Dyspnea <David North PA-C - Last Filed: 03/03/23 18:02> Lab Data 03/03/23 11:15 03/03/23 11:15 Labs: Lab Results 03/03/23 03/03/23 03/03/23 Range/Units 11:15 11:15 11:15 WBC 5.6 (4.5-11.0) X10^3/uL RBC 4.80 (4.0-5.2) X10^6/uL Hgb 14.0 (12.0-16.0) g/dL Hct 41.5 (36-46) % MCV 86.5 (80-100) fL MCH 29.1 (26-34) PG MCHC 33.7 (30-36) % RDW 15.4 H (11.6-14.8) % Plt Count 289 (150-400) X10^3/uL Neut % (Auto) 67.1 (50-75) % Lymph % (Auto) 18.2 L (25-40) % [place] % (Auto) 10.1 (3-14) % Eos % (Auto) 3.1 (2-4) % Baso % (Auto) 1.5 (0-2) % Neut # (Auto) 3800 (4690-2855) /uL Lymph # (Auto) 1000 L (0148-9273) /uL [place] # (Auto) 600 (0-900) /uL Eos # (Auto) 200 (0-450) /uL Baso # (Auto) 100 (0-100) /uL PT 12.1 (10.1-12.7) SECONDS INR 1.1 (0.9-1.3) Sodium 138 (137-145) mmol/L Potassium 4.5 (3.4-5.1) mmol/L Chloride 105 (98-107) mmol/L Carbon Dioxide 24 (22-32) mmol/L BUN 15 (7-17) mg/dL Creatinine 0.74 (0.52-1.04) mg/dL Estimated GFR > 60 (>60) mL/min BUN/Creatinine Ratio 20.3 (6-22) Glucose 101 (80-110) mg/dL Lactate (0.7-2.1) mmol/L Calcium 9.2 (8.4-10.2) mg/dL Total Bilirubin 0.5 (0.2-1.3) mg/dL AST 43 H (14-36) IU/L ALT 40 H (<35) IU/L Alkaline Phosphatase 83 (38-126) U/L Troponin I < 0.012 (0.01-0.034) ng/mL NT-Pro-B Natriuret Pep < 11 (<125) pg/mL Total Protein 7.9 (6.3-8.2) g/dL Albumin 4.4 (3.5-5.0) g/dL Globulin 3.5 (1.7-4.1) g/dL Albumin/Globulin Ratio 1.3 (1.0-2.8) Chlamy pneumoniae PCR (Not Detect) Adenovirus (PCR) (Not Detect) B. pertussis DNA (PCR) (Not Detecte) B.parapertussis DNA PCR (Not Detecte) Coronavirus OC43 (PCR) (Not Detect) Coronavirus HKU1 (PCR) (Not Detect) Coronavirus 229E (PCR) (Not Detect) SARS-CoV-2 (PCR) (Not Detecte) Coronavirus NL63 (PCR) (Not Detect) Human Metapneumovir PCR (Not Detect) Influenza Type A (PCR) (Not Detect) Influenza Type B (PCR) (Not Detect) M. pneumoniae (PCR) (Not Detect) Parainfluenza 1 (PCR) (Not Detect) Parainfluenza 2 (PCR) (Not Detect) Parainfluenza 3 (PCR) (Not Detect) Parainfluenza 4 (PCR) (Not Detect) RSV (PCR) (Not Detect) Entero/Rhino (PCR) (Not Detect) 03/03/23 03/03/23 Range/Units 11:15 11:20 WBC (4.5-11.0) X10^3/uL RBC (4.0-5.2) X10^6/uL Hgb (12.0-16.0) g/dL Hct (36-46) % MCV (80-100) fL MCH (26-34) PG MCHC (30-36) % RDW (11.6-14.8) % Plt Count (150-400) X10^3/uL Neut % (Auto) (50-75) % Lymph % (Auto) (25-40) % [place] % (Auto) (3-14) % Eos % (Auto) (2-4) % Baso % (Auto) (0-2) % Neut # (Auto) (4239-0710) /uL Lymph # (Auto) (3005-5480) /uL [place] # (Auto) (0-900) /uL Eos # (Auto) (0-450) /uL Baso # (Auto) (0-100) /uL PT (10.1-12.7) SECONDS INR (0.9-1.3) Sodium (137-145) mmol/L Potassium (3.4-5.1) mmol/L Chloride (98-107) mmol/L Carbon Dioxide (22-32) mmol/L BUN (7-17) mg/dL Creatinine (0.52-1.04) mg/dL Estimated GFR (>60) mL/min BUN/Creatinine Ratio (6-22) Glucose (80-110) mg/dL Lactate 0.9 (0.7-2.1) mmol/L Calcium (8.4-10.2) mg/dL Total Bilirubin (0.2-1.3) mg/dL AST (14-36) IU/L ALT (<35) IU/L Alkaline Phosphatase (38-126) U/L Troponin I (0.01-0.034) ng/mL NT-Pro-B Natriuret Pep (<125) pg/mL Total Protein (6.3-8.2) g/dL Albumin (3.5-5.0) g/dL Globulin (1.7-4.1) g/dL Albumin/Globulin Ratio (1.0-2.8) Chlamy pneumoniae PCR Not detected (Not Detect) Adenovirus (PCR) Not detected (Not Detect) B. pertussis DNA (PCR) Not detected (Not Detecte) B.parapertussis DNA PCR Not detected (Not Detecte) Coronavirus OC43 (PCR) Not detected (Not Detect) Coronavirus HKU1 (PCR) Not detected (Not Detect) Coronavirus 229E (PCR) Not detected (Not Detect) SARS-CoV-2 (PCR) Not detected (Not Detecte) Coronavirus NL63 (PCR) Not detected (Not Detect) Human Metapneumovir PCR Detected H (Not Detect) Influenza Type A (PCR) Not detected (Not Detect) Influenza Type B (PCR) Not detected (Not Detect) M. pneumoniae (PCR) Not detected (Not Detect) Parainfluenza 1 (PCR) Not detected (Not Detect) Parainfluenza 2 (PCR) Not detected (Not Detect) Parainfluenza 3 (PCR) Not detected (Not Detect) Parainfluenza 4 (PCR) Not detected (Not Detect) RSV (PCR) Not detected (Not Detect) Entero/Rhino (PCR) Not detected (Not Detect) Imaging Data Chest x-ray: Radiologist's Impression: [address] [id number] ReportSigned Patient: Alyse Rios RMR#: [id number]: 9Acct:[id number]/Sex: 62 / FDate of Service: 03/03/23Loc: EDAccession Number: [id number] Procedure: XR chest 1V Ordering Provider: Juliana Gimenez D.O. PROCEDURE: XR CHEST 1V INDICATIONS: Shortness of breath TECHNIQUE: One view of the chest was acquired. COMPARISON: [facility] , XR CHEST 1V, 11/27/2022, 11:36. FINDINGS: Surgical changes and devices: Right chest wall port Lungs and pleura: Lungs are clear. No pleural effusions or pneumothorax. Mediastinum: Mediastinal contours appear normal. Heart size is normal. Bones and chest wall: No suspicious bony lesions. Overlying soft tissues appear unremarkable. IMPRESSION: No acute cardiopulmonary abnormality. Dictated by: Albert Gutierres M.D. on 03/03/2023 at 11:15 Approved by: Albert Gutierres M.D. on 03/03/2023 at 11:15 ECG Data Interpretation: 1200: EKG is normal sinus rhythm rate 68 and free of any signs of ischemia or ectopy. No ST segmental elevation or depression. No T wave inversions MDM Narrative Medical decision making narrative: MDM * differential diagnosis includes but not limited to COPD exacerbation, influenza, COVID, viral illness, URI, pulmonary embolism, pneumonia * Prior records reviewed: Patient was seen at the walk-in clinic just prior to arrival with concerns for possible bronchitis. States that normal O2 reading as high 80s to low 90s. Patient was reported have sats in the 78 range in the walk-in clinic. * My lab interpretation: CBC unremarkable, no evidence of infection, no leukocytosis. Lactate and BNP within normal limit. CMP unremarkable. Troponin within normal limit. Viral panel positive for human metapneumovirus. * My imgaing interpretation: Chest x-ray unremarkable. * Clinical Decision Rules/Scores evaluated: Wells criteria is 0 * Independent discussions with: None ED Course: This is a 62-year-old female with a history of alpha 1 antitrypsin deficiency and COPD presenting to the emergency department after being seen in the walk-in clinic due to worsening shortness of breath. She denies any chest pain and no tachycardia low concern for pulmonary embolism. Wells criteria is 0. Chest x-ray was taken which showed no evidence of pneumonia. All other lab work was unremarkable as well. Troponin within normal limit and low concern for ACS. No leukocytosis in the very low concern for pneumonia. Patient was given breathing treatment here in the emergency department which significantly helped with the shortness of breath. She was satting at 91% after the breathing treatments which she states with this is within her normal range as she usually ranges from the ?high 80s to low 90s. Patient will be discouraged with a Solu- Medrol Dosepak as she states that this is usually what works for her. Patient's viral panel came back positive for human metapneumovirus which I suspect initiated this episode shortness of breath. Shared Decision Making: Discussed plan patient who is comfortable with the plan. Social Considerations: None Disposition: Discharged to home <Juliana Gimenez DO - Last Filed: 03/03/23 20:00> Lab Data Labs: Lab Results 03/03/23 03/03/23 03/03/23 Range/Units 11:15 11:15 11:15 WBC 5.6 (4.5-11.0) X10^3/uL RBC 4.80 (4.0-5.2) X10^6/uL Hgb 14.0 (12.0-16.0) g/dL Hct 41.5 (36-46) % MCV 86.5 (80-100) fL MCH 29.1 (26-34) PG MCHC 33.7 (30-36) % RDW 15.4 H (11.6-14.8) % Plt Count 289 (150-400) X10^3/uL Neut % (Auto) 67.1 (50-75) % Lymph % (Auto) 18.2 L (25-40) % [place] % (Auto) 10.1 (3-14) % Eos % (Auto) 3.1 (2-4) % Baso % (Auto) 1.5 (0-2) % Neut # (Auto) 3800 (1351-3514) /uL Lymph # (Auto) 1000 L (5870-2649) /uL [place] # (Auto) 600 (0-900) /uL Eos # (Auto) 200 (0-450) /uL Baso # (Auto) 100 (0-100) /uL PT 12.1 (10.1-12.7) SECONDS INR 1.1 (0.9-1.3) Sodium 138 (137-145) mmol/L Potassium 4.5 (3.4-5.1) mmol/L Chloride 105 (98-107) mmol/L Carbon Dioxide 24 (22-32) mmol/L BUN 15 (7-17) mg/dL Creatinine 0.74 (0.52-1.04) mg/dL Estimated GFR > 60 (>60) mL/min BUN/Creatinine Ratio 20.3 (6-22) Glucose 101 (80-110) mg/dL Lactate (0.7-2.1) mmol/L Calcium 9.2 (8.4-10.2) mg/dL Total Bilirubin 0.5 (0.2-1.3) mg/dL AST 43 H (14-36) IU/L ALT 40 H (<35) IU/L Alkaline Phosphatase 83 (38-126) U/L Troponin I < 0.012 (0.01-0.034) ng/mL NT-Pro-B Natriuret Pep < 11 (<125) pg/mL Total Protein 7.9 (6.3-8.2) g/dL Albumin 4.4 (3.5-5.0) g/dL Globulin 3.5 (1.7-4.1) g/dL Albumin/Globulin Ratio 1.3 (1.0-2.8) Chlamy pneumoniae PCR (Not Detect) Adenovirus (PCR) (Not Detect) B. pertussis DNA (PCR) (Not Detecte) B.parapertussis DNA PCR (Not Detecte) Coronavirus OC43 (PCR) (Not Detect) Coronavirus HKU1 (PCR) (Not Detect) Coronavirus 229E (PCR) (Not Detect) SARS-CoV-2 (PCR) (Not Detecte) Coronavirus NL63 (PCR) (Not Detect) Human Metapneumovir PCR (Not Detect) Influenza Type A (PCR) (Not Detect) Influenza Type B (PCR) (Not Detect) M. pneumoniae (PCR) (Not Detect) Parainfluenza 1 (PCR) (Not Detect) Parainfluenza 2 (PCR) (Not Detect) Parainfluenza 3 (PCR) (Not Detect) Parainfluenza 4 (PCR) (Not Detect) RSV (PCR) (Not Detect) Entero/Rhino (PCR) (Not Detect) 03/03/23 03/03/23 Range/Units 11:15 11:20 WBC (4.5-11.0) X10^3/uL RBC (4.0-5.2) X10^6/uL Hgb (12.0-16.0) g/dL Hct (36-46) % MCV (80-100) fL MCH (26-34) PG MCHC (30-36) % RDW (11.6-14.8) % Plt Count (150-400) X10^3/uL Neut % (Auto) (50-75) % Lymph % (Auto) (25-40) % [place] % (Auto) (3-14) % Eos % (Auto) (2-4) % Baso % (Auto) (0-2) % Neut # (Auto) (5283-5503) /uL Lymph # (Auto) (2248-3786) /uL [place] # (Auto) (0-900) /uL Eos # (Auto) (0-450) /uL Baso # (Auto) (0-100) /uL PT (10.1-12.7) SECONDS INR (0.9-1.3) Sodium (137-145) mmol/L Potassium (3.4-5.1) mmol/L Chloride (98-107) mmol/L Carbon Dioxide (22-32) mmol/L BUN (7-17) mg/dL Creatinine (0.52-1.04) mg/dL Estimated GFR (>60) mL/min BUN/Creatinine Ratio (6-22) Glucose (80-110) mg/dL Lactate 0.9 (0.7-2.1) mmol/L Calcium (8.4-10.2) mg/dL Total Bilirubin (0.2-1.3) mg/dL AST (14-36) IU/L ALT (<35) IU/L Alkaline Phosphatase (38-126) U/L Troponin I (0.01-0.034) ng/mL NT-Pro-B Natriuret Pep (<125) pg/mL Total Protein (6.3-8.2) g/dL Albumin (3.5-5.0) g/dL Globulin (1.7-4.1) g/dL Albumin/Globulin Ratio (1.0-2.8) Chlamy pneumoniae PCR Not detected (Not Detect) Adenovirus (PCR) Not detected (Not Detect) B. pertussis DNA (PCR) Not detected (Not Detecte) B.parapertussis DNA PCR Not detected (Not Detecte) Coronavirus OC43 (PCR) Not detected (Not Detect) Coronavirus HKU1 (PCR) Not detected (Not Detect) Coronavirus 229E (PCR) Not detected (Not Detect) SARS-CoV-2 (PCR) Not detected (Not Detecte) Coronavirus NL63 (PCR) Not detected (Not Detect) Human Metapneumovir PCR Detected H (Not Detect) Influenza Type A (PCR) Not detected (Not Detect) Influenza Type B (PCR) Not detected (Not Detect) M. pneumoniae (PCR) Not detected (Not Detect) Parainfluenza 1 (PCR) Not detected (Not Detect) Parainfluenza 2 (PCR) Not detected (Not Detect) Parainfluenza 3 (PCR) Not detected (Not Detect) Parainfluenza 4 (PCR) Not detected (Not Detect) RSV (PCR) Not detected (Not Detect) Entero/Rhino (PCR) Not detected (Not Detect) Discharge Plan Departure Patient Disposition: Home Clinical Impression: Infection due to human metapneumovirus (hMPV) Instructions: DI for Viral Upper Respiratory Infection -- Adult Activity Restrictions/Additional Instructions: Thank you for coming to the [facility] Emergency Department today. As discussed your testing came back positive for human metapneumovirus which is a viral illness that should improve over time with plenty of rest and fluids. Your chest x-ray showed no evidence of pneumonia. Your lab work was also unremarkable otherwise. Your testing for a ?heart attack? was unremarkable as well. Please take the oral steroids and follow up with the advertising rep. I am glad the breathing treatment Helped. The medications were sent to the [facility] in [place]. I hope you feel better soon. Prescriptions: New methylprednisolone [Medrol (Zenon)] 4 mg tablets,dose pack 4 mg PO DAILY Qty: 21 0RF No Action fluconazole 150 mg tablet 150 mg PO Q3D Qty: 2 0RF Rx Instructions: may repeat second dose 72 hrs after first dose if symptoms persist methylprednisolone [Medrol (Zenon)] 4 mg tablets,dose pack 4 mg PO DAILY Qty: 42 0RF Rx Instructions: Please provide 2 dose packs, patient to take 1 dose pack now and another for repeat symptoms if they arise ipratropium-albuterol 0.5 mg-3 mg(2.5 mg base)/3 mL Solution For Nebulization 1 neb Inhalation QID Rx Instructions: may increase frequency as needed Prolastin-C 1,000 mg Recon Soln 60 mg/kg IV QWEEK fluticasone propion-salmeterol 250-50 mcg/dose blister with device 1 inh INHALATION BID levothyroxine 50 mcg tablet 50 mcg PO DAILY montelukast 10 mg tablet 10 mg PO DAILY (DME) Respironics BIPAP System One 60 Qty: 1 Dose Instruction: As directed Patient Comments: RESPIRONICS AVS: MAX PRESSURE: 14 EPAP Min: 4 EPAP Max: 8 PS Min: 4 PS Max: 10 DME: [facility] Rx Instructions: As directed Referrals: Alicja Ryder MD [Primary Care Provider] - Stand Alone Forms: Patient Portal/API, Work Release Note <Juliana Gimenez, DO - Last Filed: 03/03/23 20:00> Cosign ED Attending Cosignature Attestation: I was immediately available in the department for consultation.
[2023-03-03 12:58] VITALS: BP 136/71; PULSE 71; O2SAT 93
== END 2023-03-03 13:19 | disposition home or self-care (01) ==
PROVIDERS: Emergency Medicine; Emergency Provider Physician Assistant Medical; PCP Internal Medicine
DX: J06.9 Acute upper respiratory infection, unspecified (principal); B97.81 Human metapneumovirus as the cause of diseases classified elsewhere; R05.9 Cough, unspecified; Z20.822 Contact with and (suspected) exposure to COVID-19
CPT/HCPCS: 36415; 71045; 80053; 83605; 83880; 84484; 85025; 85610; 87633; 93005; 93010; 94150; 94640; 99284

== ENCOUNTER → 2023-03-07 13:53 | Outpatient (CLI) | payer OTHER, SELFPAY ==
[2022-11-27 16:36] VITALS: BMI 34.9
--- NOTE | 2023-03-07 | DI.CT.S_ITS ---
PROCEDURE: CT ABDOMEN PELVIS WO CON INDICATIONS: Incisional hernia without obstruction or gangrene TECHNIQUE: After the administration of oral contrast, 5 mm thick sections acquired from the diaphragms to the symphysis. 5 mm coronal and sagittal reformats were performed. For radiation dose reduction, the following was used: automated exposure control, adjustment of mA and/or kV according to patient size. COMPARISON: [facility], CT, ABDOMEN/PELVIS WITHOUT CONTRAS, 11/27/2015, 8:59. FINDINGS: Image quality: Excellent. ABDOMEN: Lung bases: Advanced destructive emphysema. Tiny hiatal hernia. Solid organs: Liver is normal in size. Gallbladder is absent . Pancreas is normal in size. Spleen is normal in size. No adrenal nodules. Both kidneys are normal in size, without hydronephrosis . Punctate, nonobstructing left-sided nephrolithiasis. Peritoneum and bowel: Bowel loops demonstrate normal wall thickness and caliber. No free fluid or air. Nodes and vessels: No retroperitoneal or mesenteric adenopathy by size criteria. Aorta and inferior vena cava are normal in size. Miscellaneous: Multifocal ventral wall hernia containing a knuckle of nonobstructed transverse colon. The neck measures 5.9 cm and the sac measures 5.8 by 3.2 cm. PELVIS: Genitourinary: Bladder wall thickness is normal. Trace gas within the urinary bladder. Miscellaneous: No inguinal hernias or adenopathy. Bones: No suspicious bony lesions. No vertebral body compression fractures. IMPRESSION: Multifocal ventral wall hernia containing a knuckle of nonobstructed transverse colon. The neck measures 5.9 cm and the sac measures 5.8 by 3.2 cm. Punctate, nonobstructing left-sided renal stone. Dictated by: Marcello Evans M.D. on 03/07/2023 at 16:39 Approved by: Marcello Evans M.D. on 03/07/2023 at 16:42
== END ==
PROVIDERS: PCP Internal Medicine; Referring Provider Surgery; Visit Provider Surgery
DX: K43.2 Incisional hernia without obstruction or gangrene (principal); N20.0 Calculus of kidney
CPT/HCPCS: 74176

== ENCOUNTER → 2023-03-31 07:28 | Outpatient (CLI) | payer OTHER, SELFPAY ==
[2022-11-27 16:36] VITALS: BMI 34.9
--- NOTE | 2023-03-31 | DI.CT.S_ITS ---
PROCEDURE: CT CHEST WO CON INDICATIONS: Chronic respiratory failure TECHNIQUE: Noncontrast 5 mm thick sections acquired from the pulmonary apices to the posterior costophrenic angles. 1 mm lung window, 5 mm thick coronal and sagittal and 7 mm axial MIP reformats were then acquired. For radiation dose reduction, the following was used: automated exposure control, adjustment of mA and/or kV according to patient size. COMPARISON: None. FINDINGS: Image quality: Excellent. Lungs and pleura: Advanced destructive emphysema in the lung bases. Mild perihilar architectural distortion in the lung apices, probably scarring from prior infection or inflammatory process. A few regions of mucous plugging with associated bronchial thickening. 4-5 millimeter solid nodule, right upper lobe (series 3, image 64). Mediastinum: Heart size is normal. No pericardial effusion. No mediastinal adenopathy by size criteria. Thoracic aorta and central pulmonary arteries are normal in size. Esophagus is normal in caliber. No hiatal hernia. Marked coronary artery calcifications for age. Bones and chest wall: No suspicious bony lesions. No vertebral body compression fractures. No axillary or supraclavicular adenopathy by size criteria. Thyroid gland is unremarkable . Abdomen: Visualized upper abdominal solid organs and bowel loops appear normal in the absence of contrast. IMPRESSION: Basilar predominant, advanced destructive emphysema. Findings can be seen in the setting of antitrypsin deficiency, less likely smoking related changes given basilar predominance. Infectious or inflammatory bronchitis, given bronchial thickening and regions of mucous impaction. 4-5 millimeter solid nodule in the right lung apex. Consider follow-up in 12 months, per Fleischner society guidelines. Marked coronary artery calcifications for age. Consider cardiology referral. Dictated by: Marcello Evans M.D. on 03/31/2023 at 8:27 Approved by: Marcello Evans M.D. on 03/31/2023 at 8:40
== END ==
PROVIDERS: PCP Internal Medicine; Referring Provider Pediatrics; Visit Provider Pediatrics
DX: J96.10 Chronic respiratory failure, unspecified whether with hypoxia or hypercapnia (principal); J47.0 Bronchiectasis with acute lower respiratory infection; J43.9 Emphysema, unspecified; J40 Bronchitis, not specified as acute or chronic
CPT/HCPCS: 71250

== ENCOUNTER → 2024-05-12 11:49 | Outpatient (CLI) | payer OTHER, SELFPAY ==
[2022-11-27 16:36] VITALS: BMI 34.9
--- NOTE | 2024-05-12 11:51 | DI.CT.S_ITS ---
PROCEDURE: CT CHEST WO CON INDICATIONS: Chronic obstructive pulmonary disease with (acute) TECHNIQUE: Noncontrast 5 mm thick sections acquired from the pulmonary apices to the posterior costophrenic angles. 1 mm lung window, 5 mm thick coronal and sagittal and 7 mm axial MIP reformats were then acquired. For radiation dose reduction, the following was used: automated exposure control, adjustment of mA and/or kV according to patient size. COMPARISON: , CT, CT CHEST WO CON, 03/31/2023, 7:36. FINDINGS: Image quality: Diagnostic. Lower Neck: No enlarged lymph nodes. Thyroid: No thyroid nodules which require sonographic follow up, per consensus guidelines. Axillae: No enlarged lymph nodes. Chest Wall: Right chest wall port tip terminates in the cavoatrial junction. Superficial venous varicosities of the anterior chest. Bones: Unremarkable. Lungs and Pleura: No pneumothorax or pleural effusions. Stable solid pulmonary nodules, largest measuring 4 millimeters in the right lung apex (series 3, image 65). 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 Bronchial thickening with a few bronchial secretions present. Heart: Heart size is normal. No pericardial effusion. Marked coronary artery calcifications for age. Thoracic Vessels: The aorta and pulmonary arteries demonstrate normal size. Mediastinum and Valerie: No enlarged lymph nodes. Esophagus: No wall thickening. No hiatal hernia. Upper Abdomen: Visualized upper abdomen solid organs and bowel loops appear normal. IMPRESSION: Stable solid pulmonary nodule since 04/05/2023. No further follow-up is indicated. Consider annual low-dose lung cancer screening if eligible. Bronchial thickening with regions of bronchial secretions. COPD exacerbation not excluded. Correlate with symptoms. Marked coronary artery calcifications for age. Correlate with risk factors and advise counseling. Dictated by: Marcello Evans M.D. on 05/12/2024 at 14:08 Approved by: Marcello Evans M.D. on 05/12/2024 at 14:12
== END ==
PROVIDERS: PCP Pediatrics; Referring Provider Internal Medicine Pulmonary Disease; Visit Provider Internal Medicine Pulmonary Disease
DX: E88.01 Alpha-1-antitrypsin deficiency (principal); J44.0 Chronic obstructive pulmonary disease with (acute) lower respiratory infection; J96.10 Chronic respiratory failure, unspecified whether with hypoxia or hypercapnia; J45.50 Severe persistent asthma, uncomplicated; R91.8 Other nonspecific abnormal finding of lung field; G47.30 Sleep apnea, unspecified; J47.0 Bronchiectasis with acute lower respiratory infection; I25.10 Atherosclerotic heart disease of native coronary artery without angina pectoris
CPT/HCPCS: 71250

== ENCOUNTER → 2024-09-11 09:08 | Outpatient (CLI) | payer OTHER, SELFPAY ==
[2022-11-27 16:36] VITALS: BMI 34.9
[2024-09-11 10:57] LABS: Add Manual Diff / Slide Review NO; Basophils Absolute Auto 100 /uL (0-100); Basophils Percent Auto 1.4 % (0-2); Eosinophils Absolute Auto 200 /uL (0-450); Eosinophils Percent Auto 2.3 % (2-4); Hematocrit 42.6 % (36-46); Lymphocytes Absolute Auto 700 /uL (1100-4500); Lymphocytes Percent Auto 10.5 % (25-40); Mean Corpuscular HGB Conc 32.9 % (30-36); Mean Corpuscular Hemoglobin 28.9 PG (26-34); Monocytes Absolute Auto 600 /uL (0-900); Monocytes Percent Auto 8.8 % (3-14); Neutrophils Absolute Auto 5300 /uL (1500-7000); Platelet Count 304 X10^3/uL (150-400); Red Blood Cell Count 4.84 X10^6/uL (4.0-5.2); Red Cell Distribution Width 15.4 % (11.6-14.8); White Blood Cell Count 6.9 X10^3/uL (4.5-11.0)
[2024-09-11 11:07] LABS: Hemoglobin A1C% w Est Avg Glu 5.9 % (4.0-6.0)
[2024-09-11 11:16] LABS: Alanine Aminotransferase 36 IU/L (<35); Albumin 4.5 g/dL (3.5-5.0); Albumin Globulin Ratio 1.4 (1.0-2.8); Alkaline Phosphatase 88 U/L (38-126); Aspartate Aminotransferase 37 IU/L (14-36); BUN Creatinine Ratio 16.3 (6-22); Bilirubin Total 0.6 mg/dL (0.2-1.3); Blood Urea Nitrogen 15 mg/dL (7-17); Calcium 9.7 mg/dL (8.4-10.2); Carbon Dioxide 26 mmol/L (22-32); Chloride 104 mmol/L (98-107); Cholesterol 235 mg/dL (140-199); Estimated Glomerular Filt Rate > 60 mL/min (>60); Globulin 3.2 g/dL (1.7-4.1); Glucose 96 mg/dL (80-110); HDL Cholesterol 51 mg/dL (40-60); HEMOLYSIS < 15 (0-50); LDL Cholesterol Calculated 145 mg/dL (<100); Potassium 5.1 mmol/L (3.4-5.1); Sodium 138 mmol/L (137-145); Total Protein 7.7 g/dL (6.3-8.2); Triglycerides 195 mg/dL (35-150)
[2024-09-11 11:44] LABS: TSH w/ Reflex to FT4 1.39 uIU/mL (0.47-4.68)
[2024-09-11 12:05] LABS: HIV 1 & 2 Ab/Ag 4th Gen Combo NEGATIVE (NEGATIVE); Hep C Virus Ab w/Reflex Quant NEGATIVE s/c (NEGATIVE)
== END ==
PROVIDERS: PCP Family Medicine; Referring Provider Family Medicine; Visit Provider Family Medicine
DX: R73.01 Impaired fasting glucose (principal); J44.89 Other specified chronic obstructive pulmonary disease; I87.2 Venous insufficiency (chronic) (peripheral); E03.9 Hypothyroidism, unspecified; E88.01 Alpha-1-antitrypsin deficiency; R53.82 Chronic fatigue, unspecified; Z68.30 Body mass index [BMI] 30.0-30.9, adult; G47.33 Obstructive sleep apnea (adult) (pediatric)
CPT/HCPCS: 36415; 80053; 80061; 83036; 84443; 85025; 86803; 87389

== ENCOUNTER → 2024-10-18 | Outpatient (CLI) | payer MEDICARE, OTHER, SELFPAY ==
[2022-11-27 16:36] VITALS: BMI 34.9
--- NOTE | 2024-10-18 07:17 | DI.ECHO.S_ITS ---
[facility]+ [facility] : : [address] : : [place] : : [id number] : : Phone: [phone] Echocardiogram Report + + :Name: BETO FORTE Study Date: 10/18/2024 Height: 65 in : :Hospital ReadingLocation: Weight: 230 lb : : Gender: Female BSA: 2.1 m2 : :: 1960 Age: 63 yrs BP: 149/88 mmHg: :Reason For Study: SHORTNESS OF BREATH, SWELLING : :Ordering Physician: BETHANIE CLEMENTE : :[email or web address] Performed By: Linda Cheng : :Referring: FREEDOM ACE : + + Interpretation Summary Definity not used due to patient's history of PFO vs. ASD without closure. The left ventricle is normal in size and wall thickness. The left ventricular ejection fraction is normal. The ejection fraction is estimated to be 60-65%. No significant change from the previous study. The right ventricle is normal in size and function. Previous Echo 11/12/2020: Injection of contrast with valsalva documented an interatrial shunt. Doppler evidence suggests a right to left interatrial shunt. In this study contrast was not performed. No significant valvular pathology seen. The IVC is dilated (diameter is greater than 2.1 cm) yet it collapses greater than 50% with a sniff. This suggests a right atrial pressure of 8 mm Hg. Procedure: A two-dimensional transthoracic echocardiogram with color flow and Doppler was performed. The study quality was technically difficult. Comparison is made with the echocardiogram of 11/12/2020. The patient was in sinus rhythm with heart rates between 78-91 bpm during the exam. Left Ventricle: The left ventricle is normal in size and wall thickness. There is no thrombus. The ejection fraction is estimated to be 60-65%. The left ventricular ejection fraction is normal. There are no focal wall motion abnormalities. Diastolic parameters suggest a relaxation abnormality of the left ventricle, consistent with probable normal filling pressures. Right Ventricle: The right ventricle is normal in size and function. Atria: The left atrial size is normal. There has been no significant change since the previous study. Right atrial size is normal. Previous Echo 11/12/2020: Injection of contrast with valsalva documented an interatrial shunt. Doppler evidence suggests a right to left interatrial shunt. In this study contrast was not performed. Mitral Valve: The mitral valve is normal in structure and function. There is no mitral regurgitation noted. Aortic Valve: The aortic valve is trileaflet. The aortic valve opens well. The aortic valve is slightly calcified. There is no aortic valve stenosis. No aortic regurgitation is present. Tricuspid Valve: The tricuspid valve is normal in structure and function. Pulmonary artery pressures cannot be estimated because of the lack of a measurable TR jet velocity but the IVC suggests a CVP of around 8 mmHg. There is trace tricuspid regurgitation. Pulmonic Valve: The pulmonic valve is not well visualized. There is no pulmonic valvular regurgitation. Great Vessels: The aortic root is normal size. The dimensions of the ascending aorta are normal. The IVC is dilated (diameter is greater than 2.1 cm) yet it collapses greater than 50% with a sniff. This suggests a right atrial pressure of 8 mm Hg. Pericardium/ Pleura There is no pericardial effusion. There is an anterior echo-free space consistent with a fat pad. There is no pleural effusion. MMode/2D Measurements & Calculations LVIDd: 4.2 cm LVOT diam: 2.1 cm LVIDs: 2.8 cm Ao root diam: 2.6 cm FS: 32.3 % asc Aorta Diam: 3.2 cm IVSd: 0.76 cm Ao Arch Diam (Prox Trans): 2.3 cm LVPWd: 0.77 cm LV rinaldi. diameter/BSA (cm/m^2): 2.0 LV sys. diameter/BSA (cm/m^2): 1.3 LA A2 area: 15.3 cm2 RA long axis: 3.5 cm LA A4 area: 13.0 cm2 RA area: 11.3 cm2 LA length (vol): 4.5 cm RA vol: 30.8 ml LA vol: 37.8 ml RA : 14.7 ml/m2 LA vol index: 18.0 ml/m2 IVC diam: 2.2 cm RVD1 (basal): 3.2 cm RVD2 (mid): 2.5 cm TAPSE: 1.7 cm Doppler Measurements & Calculations Ao V2 max: 134.1 cm/sec LVOT Max Michael: 108.3 cm/sec Ao V2 mean: 96.4 cm/sec LV V1 max P.7 mmHg Ao max P.2 mmHg LV V1 VTI: 19.4 cm Ao mean P.1 mmHg SELAM(I,D): 2.5 cm2 Ao V2 VTI: 26.7 cm SELAM(V,D): 2.8 cm2 sev ratio: 0.73 SELAM indexed to BSA (cm^2/m^2): 1.2 MV E max michael: 87.4 cm/sec PA V2 max: 89.6 cm/sec MV A max michael: 93.0 cm/sec PA V2 mean: 63.2 cm/sec MV E/A: 0.94 PA mean P.8 mmHg Med Peak E' Michael: 12.6 cm/sec PA pr(Accel): 37.9 mmHg E/E' med: 6.9 Lat Peak E' Michael: 11.5 cm/sec E/E' lat: 7.6 E/e' average: 7.2 MV dec time: 0.20 sec MVA(VTI): 2.9 cm2 MV V2 mean: 62.2 cm/sec SV(LVOT): 66.3 ml MV mean P.7 mmHg MV V2 VTI: 23.3 cm Reading Physician:09:41 AM
== END ==
LOC: ECHO 07:00
PROVIDERS: PCP Family Medicine; Referring Provider Family Medicine; Visit Provider Family Medicine
DX: I87.2 Venous insufficiency (chronic) (peripheral) (principal); J44.0 Chronic obstructive pulmonary disease with (acute) lower respiratory infection; J44.1 Chronic obstructive pulmonary disease with (acute) exacerbation; R60.0 Localized edema; E88.01 Alpha-1-antitrypsin deficiency; R91.8 Other nonspecific abnormal finding of lung field; J47.0 Bronchiectasis with acute lower respiratory infection
CPT/HCPCS: 93306

== ENCOUNTER → 2025-05-28 08:44 | Outpatient (CLI) | payer MEDICARE, OTHER, SELFPAY ==
[2022-11-27 16:36] VITALS: BMI 34.9
[2025-05-28 09:29] LABS: Hematocrit 41.7 % (36-46); Hemoglobin 13.8 g/dL (12.0-16.0); Mean Corpuscular HGB Conc 33.0 % (30-36); Mean Corpuscular Hemoglobin 29.5 PG (26-34); Mean Corpuscular Volume 89.2 fL (80-100); Platelet Count 265 X10^3/uL (150-400)
[2025-05-28 09:44] LABS: Alanine Aminotransferase 39 IU/L (<35); Albumin 4.3 g/dL (3.5-5.0); Albumin Globulin Ratio 1.3 (1.0-2.8); Alkaline Phosphatase 77 U/L (38-126); Blood Urea Nitrogen 19 mg/dL (7-17); Calcium 9.7 mg/dL (8.4-10.2); Carbon Dioxide 27 mmol/L (22-32); Chloride 103 mmol/L (98-107); Estimated Glomerular Filt Rate > 60 mL/min (>60); Globulin 3.2 g/dL (1.7-4.1); Glucose 96 mg/dL (70-99); HEMOLYSIS < 15 (0-50); Potassium 4.8 mmol/L (3.4-5.1); Sodium 139 mmol/L (137-145); Total Protein 7.5 g/dL (6.3-8.2)
[2025-05-28 09:49] LABS: Hemoglobin A1C% w Est Avg Glu 5.5 % (4.0-6.0)
== END ==
PROVIDERS: PCP Family Medicine; Referring Provider Family Medicine; Visit Provider Family Medicine
DX: E78.2 Mixed hyperlipidemia (principal); R73.01 Impaired fasting glucose; J42 Unspecified chronic bronchitis; E88.01 Alpha-1-antitrypsin deficiency; G47.33 Obstructive sleep apnea (adult) (pediatric); E66.9 Obesity, unspecified
CPT/HCPCS: 36415; 80053; 83036; 85027